=== PATIENT | male | born 1960 | race Caucasian/White ===

== ENCOUNTER 2017-08-23 15:50 | Emergency (ER) | payer MEDICARE, OTHER ==
[2017-08-23 16:03] LABS: BILIRUBIN,URINE NEGATIVE (NEG); CLARITY,URINE CLEAR; COLOR,URINE YELLOW; GLUCOSE,URINE NEGATIVE (NEG); NITRITE,URINE NEGATIVE (NEG); PROTEIN,URINE NEGATIVE (NEG-TRACE); UROBILINOGEN,URINE 0.2 mg/dL (0.2 mg/dL)
[2017-08-23] MEDS: IPRATRPIUM/ALBUTEROL 0.5/2.5MG 3 ML NEBU. NEB (16:14)
[2017-08-23 16:41] LABS: BACTERIA,URINE 0 /HPF (0-FEW); RBC,URINE 0 /HPF (0-2); SQUAMOUS EPITHELIAL CELL,UR OCC /LPF; WBC,URINE OCC /HPF (0-4)
[2017-08-23] MEDS: IV NORMAL SALINE 1000ML BAG 1,000 ML IV (17:12)
[2017-08-23] MEDS: KETOROLAC 30 MG/ML INJ. IV (17:14)
[2017-08-23] MEDS: HYDROcodone/APAP 5/325MG 1 TAB TABLET PO (17:15)
[2017-08-23 17:32] LABS: ADD MAN DIFF? NO
[2017-08-23 17:36] LABS: BASO % 1 % (0-3); EOS # 0.2 x10^3/uL (0.0-0.7); EOS % 2 % (0-3); HEMATOCRIT 38.5 % (39.0-53.0); HEMOGLOBIN 13.3 g/dL (13.0-17.5); LYMPH # 2.1 x10^3/uL (1.0-4.8); LYMPH % 26 % (24-48); MEAN CORPUSCULAR HEMOGLOBIN 31 pg (25-35); MEAN CORPUSCULAR HGB CONC 35 g/dL (31-37); MEAN CORPUSCULAR VOLUME 90 fL (79-100); MONO % 12 % (0-9); NEUT # 4.8 x10^3uL (1.8-7.7); NEUT % 60 % (31-73); PLATELET COUNT 212 x10^3/uL (140-400); RED BLOOD COUNT 4.27 x10^6/uL (4.30-5.70); RED CELL DISTRIBUTION WIDTH 13.4 % (11.5-14.5)
[2017-08-23 17:45] LABS: ANION GAP 6 (6-14); BLOOD UREA NITROGEN 14 mg/dL (8-26); BUN/CREATININE RATIO 16 (6-20); CALCIUM 8.8 mg/dL (8.5-10.1); CARBON DIOXIDE 31 mmol/L (21-32); CHLORIDE 95 mmol/L (98-107); CREATININE 0.9 mg/dL (0.7-1.3); GFR 87.6; GLUCOSE 94 mg/dL (70-99); POTASSIUM 4.1 mmol/L (3.5-5.1); SODIUM 132 mmol/L (136-145)
[2017-08-23 17:52] LABS: TROPONINI < 0.017 ng/mL (0.000-0.055)
[2017-08-23 17:53] LABS: ALBUMIN 3.3 g/dL (3.4-5.0); ALBUMIN/GLOBULIN RATIO 0.9 (1.0-1.7); ALK PHOS 60 U/L (46-116); ALT (SGPT) 28 U/L (16-63); AST (SGOT) 19 U/L (15-37); CREATINE KINASE 109 U/L (39-308); LIPASE 209 U/L (73-393); MAGNESIUM 1.8 mg/dL (1.8-2.4); TOTAL BILIRUBIN 0.3 mg/dL (0.2-1.0)
[2017-08-23 17:59] LABS: THYROID STIM HORMONE (TSH) 3.129 uIU/mL (0.358-3.74)
== END 2017-08-23 18:46 | disposition home or self-care (01) ==
LOC: ER 15:50
DX: J06.9 Acute upper respiratory infection, unspecified (principal); M79.1 Myalgia; R06.2 Wheezing; R30.0 Dysuria; F31.9 Bipolar disorder, unspecified
CPT/HCPCS: 36415; 71045; 80053; 81001; 82550; 83690; 83735; 84443; 84484; 85025; 93005; 94640; 96361; 96374; 99285-25; J1885; J7030; J7620

== ENCOUNTER → 2017-10-10 | Outpatient (CLI) | payer MEDICARE, OTHER | END | disposition home or self-care (01) | LOC: KCIC DEXA 15:25 | DX: M85.88 Other specified disorders of bone density and structure, other site (principal); M81.0 Age-related osteoporosis without current pathological fracture; R56.9 Unspecified convulsions; Z79.899 Other long term (current) drug therapy | CPT/HCPCS: 77080 ==

== ENCOUNTER 2019-03-03 09:25 | Inpatient (IN) | payer MEDICARE, MEDICAID ==
[~2019-03-03] VITALS: Ht 175.3 cm; Wt 106.7 kg
[~2019-03-03 09:25] MED LIST: ACET325T21 PO; ALBU2.5V8 INH; ALPR0.5T6 PO; AZIT250T PO; CARB200T4 PO; DIVA500T17 PO; DOCU100C28 PO; ESCITALOPRAM OX10 MG PO; HYDR-3164 PO; Hydrocodone/Acetaminophen PO; Ibuprofen PO; LORA10TA3 PO; MULT1TAB52 PO; PHEN100C4 PO; RISP3TAB3 PO; TRAZ-86 PO; ZIPR80CA3 PO; [UNRECOGNIZED DRUG - CODE] PO
--- NOTE | 2019-03-03 09:42 | PHYS DOC ---
Past Medical History Past Medical History: Bipolar, Seizure, Other Additional Past Medical Histor: Cerebal palsy (JOSTIN SULLIVAN APRN) Past Surgical History: Other Additional Past Surgical Histo: rt foot and leg surgery and rt hand (JOSTIN SULLIVAN APRN) Alcohol Use: None Drug Use: None (JOSTIN SULLIVAN APRN) Attending Signature I have participated in the care of this patient and I have reviewed and agree with all pertinent clinical information above including history, exam, and recommendations. (ALEN WARD MD) Adult General HPI HPI Patient is a 58 year old male who presents with alert and oriented but had a near syncopal episode in having dizziness today. Patient states he has been having dizziness and just overall increased fatigue over the last week and a half. Patient states about a week and a half ago they doubled his dose of Risperdal and ever since then he has been feeling this way. (JOSTIN SULLIVAN APRN) Review of Systems Review of Systems Constitutional: Denies fever or chills [] Musculoskeletal:Generalized weakness. Denies back pain or joint pain [] Neurologic: Dizziness. Denies headache, focal weakness or sensory changes [] All other systems were reviewed and found to be within normal limits, except as documented in this note. (JOSTIN SULLIVAN APRN) Current Medications Current Medications Current Medications Medications (Trade) Dose Ordered Sig/Tierney Start Time Stop Time Status Last Admin Dose Admin Acetaminophen (Tylenol) 650 mg PRN Q4HRS PRN 03/03/19 11:45 03/04/19 11:44 Meclizine HCl (Antivert) 25 mg 1X ONCE 03/03/19 10:00 03/03/19 10:07 DC 03/03/19 10:10 25 MG Ondansetron HCl (Zofran) 4 mg PRN Q8HRS PRN 03/03/19 11:45 03/04/19 11:44 Sodium Chloride 1,000 ml @ 1,000 mls/hr Q1H 03/03/19 10:00 03/03/19 10:59 DC 03/03/19 10:11 1,000 MLS/HR (ALEN WARD MD) Allergies Allergies Allergies Coded Allergies Type Severity Reaction Last Updated Verified No Known Drug Allergies 09/25/13 No (ALEN WARD MD) Physical Exam Physical Exam Constitutional: Well developed, well nourished, no acute distress, non-toxic appearance. [] HENT: Normocephalic, atraumatic, bilateral external ears normal, oropharynx moist, no oral exudates, nose normal. [] Eyes: PERRLA, EOMI, conjunctiva normal, no discharge. [] Cardiovascular:Heart rate regular rhythm, no murmur [] Lungs & Thorax: Bilateral breath sounds clear to auscultation [] Skin: Warm, dry, no erythema, no rash. [] Extremities: No tenderness, no cyanosis, no clubbing, ROM intact, no edema. [] Neurologic: Alert and oriented X 3, normal motor function, normal sensory function, no focal deficits noted. [] Psychologic: Affect normal, judgement normal, mood normal. [] (JOSTIN SULLIVAN APRN) Current Patient Data Vital Signs Vital Signs Date Time Temp Pulse Resp B/P (MAP) Pulse Ox O2 Delivery O2 Flow Rate FiO2 03/03/19 12:31 42 18 94 03/03/19 09:28 97.8 148/96 (113) Room Air 97.8 (ALEN WARD MD) Lab Values Laboratory Tests Test 03/03/19 10:16 White Blood Count 5.2 x10^3/uL (4.0-11.0) Red Blood Count 4.42 x10^6/uL (4.30-5.70) Hemoglobin 14.0 g/dL (13.0-17.5) Hematocrit 40.4 % (39.0-53.0) Mean Corpuscular Volume 91 fL (79-100) Mean Corpuscular Hemoglobin 32 pg (25-35) Mean Corpuscular Hemoglobin Concent 35 g/dL (31-37) Red Cell Distribution Width 13.6 % (11.5-14.5) Platelet Count 192 x10^3/uL (140-400) Neutrophils (%) (Auto) 60 % (31-73) Lymphocytes (%) (Auto) 25 % (24-48) Monocytes (%) (Auto) 12 % (0-9) H Eosinophils (%) (Auto) 3 % (0-3) Basophils (%) (Auto) 1 % (0-3) Neutrophils # (Auto) 3.1 x10^3/uL (1.8-7.7) Lymphocytes # (Auto) 1.3 x10^3/uL (1.0-4.8) Monocytes # (Auto) 0.6 x10^3/uL (0.0-1.1) Eosinophils # (Auto) 0.2 x10^3/uL (0.0-0.7) Basophils # (Auto) 0.0 x10^3/uL (0.0-0.2) Urine Collection Type Void Urine Color Yellow Urine Clarity Clear Urine pH 6.5 Urine Specific Ronald 1.010 Urine Protein Negative mg/dL (NEG-TRACE) Urine Glucose (UA) Negative mg/dL (NEG) Urine Ketones (Stick) Negative mg/dL (NEG) Urine Blood Negative (NEG) Urine Nitrite Negative (NEG) Urine Bilirubin Negative (NEG) Urine Urobilinogen Dipstick 0.2 mg/dL (0.2 mg/dL) Urine Leukocyte Esterase Negative (NEG) Urine RBC 1-2 /HPF (0-2) Urine WBC Occ /HPF (0-4) Urine Bacteria 0 /HPF (0-FEW) Sodium Level 140 mmol/L (136-145) Potassium Level 4.1 mmol/L (3.5-5.1) Chloride Level 105 mmol/L (98-107) Carbon Dioxide Level 29 mmol/L (21-32) Anion Gap 6 (6-14) Blood Urea Nitrogen 13 mg/dL (8-26) Creatinine 0.7 mg/dL (0.7-1.3) Estimated GFR (Cockcroft-Gault) 116.7 BUN/Creatinine Ratio 19 (6-20) Glucose Level 107 mg/dL (70-99) H Calcium Level 9.0 mg/dL (8.5-10.1) Total Bilirubin 0.3 mg/dL (0.2-1.0) Aspartate Amino Transferase (AST) 19 U/L (15-37) Alanine Aminotransferase (ALT) 28 U/L (16-63) Alkaline Phosphatase 54 U/L (46-116) Troponin I Quantitative < 0.017 ng/mL (0.000-0.055) Total Protein 7.0 g/dL (6.4-8.2) Albumin 3.4 g/dL (3.4-5.0) Albumin/Globulin Ratio 0.9 (1.0-1.7) L Laboratory Tests 03/03/19 10:16 Laboratory Tests 03/03/19 10:16 (ALEN WARD MD) Lab Values Laboratory Tests Test 03/03/19 10:16 White Blood Count 5.2 x10^3/uL (4.0-11.0) Red Blood Count 4.42 x10^6/uL (4.30-5.70) Hemoglobin 14.0 g/dL (13.0-17.5) Hematocrit 40.4 % (39.0-53.0) Mean Corpuscular Volume 91 fL (79-100) Mean Corpuscular Hemoglobin 32 pg (25-35) Mean Corpuscular Hemoglobin Concent 35 g/dL (31-37) Red Cell Distribution Width 13.6 % (11.5-14.5) Platelet Count 192 x10^3/uL (140-400) Neutrophils (%) (Auto) 60 % (31-73) Lymphocytes (%) (Auto) 25 % (24-48) Monocytes (%) (Auto) 12 % (0-9) H Eosinophils (%) (Auto) 3 % (0-3) Basophils (%) (Auto) 1 % (0-3) Neutrophils # (Auto) 3.1 x10^3/uL (1.8-7.7) Lymphocytes # (Auto) 1.3 x10^3/uL (1.0-4.8) Monocytes # (Auto) 0.6 x10^3/uL (0.0-1.1) Eosinophils # (Auto) 0.2 x10^3/uL (0.0-0.7) Basophils # (Auto) 0.0 x10^3/uL (0.0-0.2) Urine Collection Type Void Urine Color Yellow Urine Clarity Clear Urine pH 6.5 Urine Specific Ronald 1.010 Urine Protein Negative mg/dL (NEG-TRACE) Urine Glucose (UA) Negative mg/dL (NEG) Urine Ketones (Stick) Negative mg/dL (NEG) Urine Blood Negative (NEG) Urine Nitrite Negative (NEG) Urine Bilirubin Negative (NEG) Urine Urobilinogen Dipstick 0.2 mg/dL (0.2 mg/dL) Urine Leukocyte Esterase Negative (NEG) Urine RBC 1-2 /HPF (0-2) Urine WBC Occ /HPF (0-4) Urine Bacteria 0 /HPF (0-FEW) Sodium Level 140 mmol/L (136-145) Potassium Level 4.1 mmol/L (3.5-5.1) Chloride Level 105 mmol/L (98-107) Carbon Dioxide Level 29 mmol/L (21-32) Anion Gap 6 (6-14) Blood Urea Nitrogen 13 mg/dL (8-26) Creatinine 0.7 mg/dL (0.7-1.3) Estimated GFR (Cockcroft-Gault) 116.7 BUN/Creatinine Ratio 19 (6-20) Glucose Level 107 mg/dL (70-99) H Calcium Level 9.0 mg/dL (8.5-10.1) Total Bilirubin 0.3 mg/dL (0.2-1.0) Aspartate Amino Transferase (AST) 19 U/L (15-37) Alanine Aminotransferase (ALT) 28 U/L (16-63) Alkaline Phosphatase 54 U/L (46-116) Troponin I Quantitative < 0.017 ng/mL (0.000-0.055) Total Protein 7.0 g/dL (6.4-8.2) Albumin 3.4 g/dL (3.4-5.0) Albumin/Globulin Ratio 0.9 (1.0-1.7) L Laboratory Tests 03/03/19 10:16 Laboratory Tests 03/03/19 10:16 (JOSTIN SULLIVAN APRN) EKG EKG #1 Sinus rhythm and no STEMI, #2 Sinus Bradycardia] Interpretation Time: #[address] Ward, #[address] Ward (JOSTIN SULLIVAN APRN) Radiology/Procedures Radiology/Procedures [] (JOSTIN SULLIVAN APRN) Impressions: [facility] [address] [place], [place] [id number] IMAGING REPORT Signed PATIENT: WENDY LINARES LACCOUNT: [id number] : 1960 LOCATION: ER AGE: 58 SEX: M EXAM STATUS: REG ER ORD. PHYSICIAN: JOSTIN SULLIVAN APRN REASON: weakness, dizziness PROCEDURE: PORTABLE CHEST 1V EXAM: CHEST 1 VIEW History: Weakness, dizziness COMPARISON: 08/23/2017 TECHNIQUE: Single portable radiograph of the chest FINDINGS: The cardiac silhouette is unremarkable. The lungs are clear bilaterally. The costophrenic sulci are clear and well demarcated. IMPRESSION: No radiographic evidence of an acute cardiopulmonary process. Electronically signed by: Seth Hayden MD (03/03/2019 9:56 AM) [id number] DICTATED and SIGNED BY: SETH HAYDEN MD DATE: 03/03/19 0956 [facility] [address] [place] [address] IMAGING REPORT Signed PATIENT: WENDY LINARES LACCOUNT: [id number] : 1960 LOCATION: ER AGE: 58 SEX: M EXAM STATUS: REG ER ORD. PHYSICIAN: JOSTIN SULLIVAN APRN REASON: dizziness, near syncope PROCEDURE: CT HEAD WO CONTRAST CT HEAD WO CONTRAST Date: 03/03/2019 9:31 AM Clinical Indication: Comparison: 03/26/2014. Technique: 5 mm axial tomographic images were obtained of the head without contrast. These were viewed on brain and bone windows. One or more of the following dose reduction techniques were utilized: Automated exposure control (AEC), Adjustment of mA and/or kV according to patient size, Use of iterative reconstruction technique such as ASiR, CT scan done according to ALARA and image gently/image wisely Findings: No intra- or extra-axial mass or fluid collection. No acute hemorrhage. The pierce-white matter junction is normal. The subarachnoid cisterns are patent. Demonstration of a large area of left hemisphere encephalomalacia involving the left frontal, parietal, temporal, occipital lobes. Ex vacuo dilatation of the left lateral ventricle. The visualized paranasal sinuses are normal. The visualized portions of the orbits and globes are normal. The mastoid air cells are clear. The skip tracer topogram shows no lytic lesion or fracture. Impression: No acute intracranial process. Large area of left hemispheric encephalomalacia. Electronically signed by: Katlin Kellogg MD (03/03/2019 10:09 AM) [id number] DICTATED and SIGNED BY: KATLIN KELLOGG MD DATE: 03/03/19 1009 (JOSTIN SULLIVAN APRN) Course & Med Decision Making Course & Med Decision Making Denies chest pain, soa, headache, focal weakness, numbness or tingling, fever, dysuria, recent illness, abdominal pain. No extremity edema. Hx of cerebral palsy with right sided weakness. Patient uses a walker yo ambulate. EMS states that the patient began to feel dizzy this morning at his group home "[facility]". EMS and patient states the patient did not fall and he did not loc. PERRLA. During orthostatics when patient was stood up patient became very dizzy and almost syncopal. Orthostatics are layin/89, 52; sittin/78, 57; standing 139/80, 59. Patient states that the meclizine has not helped. Patients heart rate is dropping down to 40. Patient admitted for syncope by Cecelia. (JOSTIN SULLIVAN APRN) Dragon Disclaimer Dragon Disclaimer This electronic medical record was generated, in whole or in part, using a voice recognition dictation system. (JOSTIN SULLIVAN APRN) NIHSS Stroke Scale NIH Stroke Scale: NIH Stroke Scale Response (Comments) Value Level of Consciousness: 0 Alert/Responsive 0 LOC Questions: 0 Answers both correctly 0 LOC Commands: 0 Performs both tasks 0 Best Gaze: 0 Normal 0 Visual: 0 No visual loss 0 Facial Palsy: 0 Normal, symmetrical 0 Motor - Left Arm 0 No drift 0 Motor - Right Arm 1 Drifts but can hold 1 Motor - Left Leg 0 No drift 0 Motor: Right Leg 1 Drift but can hold 1 Limb Ataxia: 0 Absent (HX: CEREBRAL PALSY WITH RIGHT SIDED WEAKNESS) 0 Sensory: 0 No loss 0 Best Language: 0 Normal 0 Dysathria: 0 Normal 0 Extinction and Inattention: 0 Normal 0 Total 2 Departure Departure Impression: Primary Impression: Syncope Disposition: 09 ADMITTED INPATIENT Admitting Physician: Angle Rai (JOSTIN SULLIVAN APRN) Condition: STABLE Referrals: SANTO SMART (PCP) Problem Qualifiers Primary Impression: Syncope Syncope type: unspecified Qualified Codes: R55 - Syncope and collapse JOSTIN SULLIVAN APRN Mar 03, 2019 09:42 ALEN WARD MD Mar 03, 2019 12:55
--- NOTE | 2019-03-03 09:59 | RAD ---
EXAM: CHEST 1 VIEW History: Weakness, dizziness COMPARISON: 08/23/2017 TECHNIQUE: Single portable radiograph of the chest FINDINGS: The cardiac silhouette is unremarkable. The lungs are clear bilaterally. The costophrenic sulci are clear and well demarcated. IMPRESSION: No radiographic evidence of an acute cardiopulmonary process. Electronically signed by: Seth Hayden MD (03/03/2019 9:56 AM) [id number]
[2019-03-03] MEDS ORDERED: IV NORMAL SALINE 1000ML BAG 1,000 ML IV SCH (10:00)
[2019-03-03] MEDS ORDERED: MECLIZINE HCL 12.5 MG TABLET. PO ONE (10:00)
--- NOTE | 2019-03-03 10:12 | RAD ---
CT HEAD WO CONTRAST Date: 03/03/2019 9:31 AM Clinical Indication: Comparison: 03/26/2014. Technique: 5 mm axial tomographic images were obtained of the head without contrast. These were viewed on brain and bone windows. One or more of the following dose reduction techniques were utilized: Automated exposure control (AEC), Adjustment of mA and/or kV according to patient size, Use of iterative reconstruction technique such as ASiR, CT scan done according to ALARA and image gently/image wisely Findings: No intra- or extra-axial mass or fluid collection. No acute hemorrhage. The pierce-white matter junction is normal. The subarachnoid cisterns are patent. Demonstration of a large area of left hemisphere encephalomalacia involving the left frontal, parietal, temporal, occipital lobes. Ex vacuo dilatation of the left lateral ventricle. The visualized paranasal sinuses are normal. The visualized portions of the orbits and globes are normal. The mastoid air cells are clear. The pharmacy picking technician topogram shows no lytic lesion or fracture. Impression: No acute intracranial process. Large area of left hemispheric encephalomalacia. Electronically signed by: Justus Kellogg MD (03/03/2019 10:09 AM) [facility]
[2019-03-03 10:28] LABS: BASO % 1 % (0-3); EOS # 0.2 x10^3/uL (0.0-0.7); EOS % 3 % (0-3); HEMATOCRIT 40.4 % (39.0-53.0); LYMPH # 1.3 x10^3/uL (1.0-4.8); LYMPH % 25 % (24-48); MEAN CORPUSCULAR HEMOGLOBIN 32 pg (25-35); MEAN CORPUSCULAR HGB CONC 35 g/dL (31-37); MEAN CORPUSCULAR VOLUME 91 fL (79-100); MONO # 0.6 x10^3/uL (0.0-1.1); MONO % 12 % (0-9); NEUT # 3.1 x10^3/uL (1.8-7.7); NEUT % 60 % (31-73); PLATELET COUNT 192 x10^3/uL (140-400); RED BLOOD COUNT 4.42 x10^6/uL (4.30-5.70); RED CELL DISTRIBUTION WIDTH 13.6 % (11.5-14.5); WHITE BLOOD COUNT 5.2 x10^3/uL (4.0-11.0)
[2019-03-03 10:29] LABS: BILIRUBIN,URINE NEGATIVE (NEG); CLARITY,URINE CLEAR; COLOR,URINE YELLOW; NITRITE,URINE NEGATIVE (NEG); PH,URINE 6.5; PROTEIN,URINE NEGATIVE (NEG-TRACE); UROBILINOGEN,URINE 0.2 mg/dL (0.2 mg/dL)
[2019-03-03 10:38] LABS: CREATININE 0.7 mg/dL (0.7-1.3); GFR 116.7; POTASSIUM 4.1 mmol/L (3.5-5.1)
[2019-03-03 10:44] LABS: BACTERIA,URINE 0 /HPF (0-FEW); WBC,URINE OCC /HPF (0-4)
[2019-03-03 10:45] LABS: ALBUMIN 3.4 g/dL (3.4-5.0); ALBUMIN/GLOBULIN RATIO 0.9 (1.0-1.7); TOTAL BILIRUBIN 0.3 mg/dL (0.2-1.0)
[2019-03-03] MEDS ORDERED: ONDANSETRON PF 4 MG/2 ML VIAL. IV PRN (11:45)
[2019-03-03] MEDS ORDERED: ACETAMINOPHEN 325 MG TABLET. PO PRN (11:45)
--- NOTE | 2019-03-03 12:09 | EKG ---
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
--- NOTE | 2019-03-03 12:56 | EKG ---
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
[2019-03-03 15:00] VITALS: BP 168/80
[2019-03-03] MEDS ORDERED: FLU VAX QS 2019-20 (36MOS+)/PF 0.5 ML SYRINGE. VAX IM ONE (17:00)
--- NOTE | 2019-03-03 17:13 | NUR ---
DR. CALDERA WOULD LIKE TO HOLD PT RESPIRADONE UNTIL CLEARED. PLEASE INFORM DR. POZO OF THIS IN THE AM IF ROUNDING FIRST WHEN RESTARTING HOME MEDICATIONS.
[2019-03-03] MEDS ORDERED: ASPI325T8 PO (19:24)
[2019-03-03] MEDS ORDERED: RISP2TAB3 PO (19:24)
[2019-03-03] MEDS ORDERED: ESCITALOPRAM OX20 MG PO (19:24)
[2019-03-03] MEDS ORDERED: FERR325T20 PO (19:32)
[2019-03-03] MEDS ORDERED: FLUT16SP NS (19:32)
[2019-03-03] MEDS ORDERED: PHEN100C4 PO (19:32)
[2019-03-03] MEDS ORDERED: CALC500T10 PO (19:32)
[2019-03-03] MEDS ORDERED: CETI10TA16 PO (19:32)
[2019-03-03] MEDS ORDERED: DIVA500T17 PO (19:32)
[2019-03-03] MEDS ORDERED: CHLO15MO2 PO (19:32)
[2019-03-03] MEDS ORDERED: CARB200T4 PO (19:32)
[2019-03-03] MEDS ORDERED: PHEN200C3 PO (19:32)
[2019-03-03] MEDS ORDERED: [UNRECOGNIZED DRUG - CODE] PO (19:32)
[2019-03-03 19:58] VITALS: BP 149/87
[2019-03-03] MEDS: traZODone 100 MG TABLET. PO SCH (21:05)
[2019-03-03] MEDS: carBAMazepine 200 MG TABLET PO SCH (21:05)
[2019-03-03] MEDS: PHENYTOIN SODIUM EXTENDED 100 MG CAPSULE PO SCH (21:06)
[2019-03-03] MEDS: TIAGABINE 4 MG PO SCH (21:06)
[2019-03-03] MEDS: DIVALPROEX EXTENDED RELEASE 250 MG TAB.ER.24H. PO SCH (21:06)
[2019-03-03] MEDS: IV NORMAL SALINE 1000ML BAG 1,000 ML IV SCH (21:43)
[2019-03-03 23:35] VITALS: BP 130/60
[2019-03-04] VITALS (9 sets, daily range): BP systolic 124–181; BP diastolic 67–100
[2019-03-04 05:22] LABS: CARBAM 5.5 mcg/mL (4.0-12.0); CHOLESTEROL 142 mg/dL (0-200); HDLC 28 mg/dL (40-60); LDLC 83 mg/dL (0-100); PHENY 4.4 mcg/mL (10.0-20.0); TRIGLYCERIDES 156 mg/dL (0-150); VLDLC 31 mg/dL (0-40)
[2019-03-04 05:24] LABS: CHOLESTEROL/HDL RATIO 5.1; VAL ACID 37 mcg/mL (50-100)
[2019-03-04] MEDS: IV NORMAL SALINE 1000ML BAG 1,000 ML IV SCH ×2 (07:15→21:01)
[2019-03-04] MEDS: CITALOPRAM 20 MG TABLET. PO SCH (09:29)
[2019-03-04] MEDS: TIAGABINE 4 MG PO SCH ×2 (09:29→21:01)
[2019-03-04] MEDS: SENNOSIDES/DOCUSATE 8.6/50MG TABLET. PO SCH ×3 (09:29→21:03)
[2019-03-04] MEDS: MULTIVITAMIN with MINERAL TABLET. PO SCH (09:30)
[2019-03-04] MEDS: PHENYTOIN SODIUM EXTENDED 100 MG CAPSULE PO SCH ×2 (09:30→21:02)
[2019-03-04] MEDS: carBAMazepine 200 MG TABLET PO SCH ×3 (09:30→21:02)
[2019-03-04] MEDS: ASPIRIN 325 MG TABLET PO SCH (09:30)
[2019-03-04] MEDS: FLUTICASONE 50MCG/NASAL SPRAY 16GM BOTTLE. NS SCH ×2 (09:31→21:01)
--- NOTE | 2019-03-04 09:51 | PDOC ---
Provider Note Provider Note Pt seen.H&P dictated.#[id number]. XIOMARA POZO MD Mar 04, 2019 09:51
--- NOTE | 2019-03-04 10:14 | HP ---
ADMIT DATE: 03/03/2019 PATIENT LOCATION: [facility]. REASON FOR ADMISSION TO THE HOSPITAL: Syncope. PRIMARY PHYSICIAN: Brandi Foley MD HISTORY OF PRESENT ILLNESS: The patient is a 58-year-old male. The patient has a mental disability and he also has history of seizures and he is on 3 medications for seizure. He also has behavioral problems, had seen a psychiatrist a couple of days ago. The psychiatrist increased risperidone to twice a day and then the sister, who is the DPOA, saying that he was lightheaded, dizzy, and he fell yesterday and there was some bruising on the back of the upper abdomen and he was brought to the hospital. CT head was negative. Chest x-ray was negative. Laboratory data did not show any major problems. Had an EKG, shows a bradycardia around 50s and the patient was admitted to the hospital for observation and monitoring. PAST MEDICAL HISTORY: Had cerebral palsy, seizures, bipolar. PAST SURGICAL HISTORY: Surgery on the leg and foot. ALLERGIES: No known allergies. MEDICATIONS AT HOME: The patient is on aspirin 325 daily, carbamazepine 200 mg 3 times daily, Depakote 500 mg; total he takes 750 mg daily, escitalopram 20 mg daily, Flonase daily, multivitamin daily, Dilantin 100 mg in the morning and 200 mg in the nighttime, senna daily, tiagabine or Gabitril 12 mg twice a day, trazodone 100 mg at bedtime and Peridex, calcium twice a day. PERSONAL HISTORY: Denies smoking, alcohol, drug abuse. FAMILY HISTORY: Unremarkable. REVIEW OF SYSTEMS: Denies any chest pain. Complains of bruise in the upper abdomen from the fall. Rest of the 14-system was reviewed and negative. PHYSICAL EXAMINATION: GENERAL: The patient is not in any distress. VITAL SIGNS: Temperature 98, pulse 53, respirations 20, blood pressure 148/96, 95% on room air. HEENT: Head is atraumatic. Pupils equal. Oral cavity: No congestion. NECK: Supple. CHEST: Symmetrical. CARDIOVASCULAR: S1, S2. LUNGS: Clear. ABDOMEN: Soft. Some bruising in the left upper abdomen, nontender, bowel sounds present, no mass palpable. EXTERNAL GENITALIA: No Kline. RECTAL: Deferred. EXTREMITIES: No calf tenderness. No edema. Pulses 1+. NEUROLOGIC: Moving all extremities. No focal deficits noted. LABORATORY DATA: Shows a white count 5, hemoglobin 14, platelets 192. Urine is negative. Electrolytes show sodium 140, potassium 4.1, chloride 105, bicarb 29, BUN 13, creatinine 0.7, glucose 107. LFTs were normal. Thyroid 1.3. Cholesterol 156, LDL 83. Toxicology: Dilantin was 5. Valproic acid 37. Carbamazepine 5.5. Had a CT head, shows a left hemispheric encephalomalacia, large area. Chest x-ray: Negative. EKG: Sinus bradycardia, no ischemia. FINAL IMPRESSION: 1. Syncope. 2. Bradycardia. 3. History of seizures. 4. Cerebral palsy. 5. Recent increase in risperidone may be contributing the problems. PLAN: At this time, is admit to the hospital. The patient was admitted, was put on threat monitoring analyst. No further bradycardia noted. We will get an echocardiogram to look at left ventricular function, probably may need outpatient Holter. We will leave it to Cardiology and PT/OT and review the therapeutic levels of medications. If it is okay, probably we will be able to discharge later today. I spoke with the patient's sister. XIOMARA POZO MD DR: JESUS/stephen JOB#: [id number] / [id number] Batista Ahmed MD
--- NOTE | 2019-03-04 11:48 | PDOC2 ---
CONSULT Date of Consult Date of Consult DATE: 03/04/19 TIME: 11:40 Reason for Consult Reason for Consult: Syncope Referring Physician Referring Physician: Dr. Rai Identification/Chief Complaint Chief Complaint Syncope Source Source: Chart review, Patient History of Present Illness Reason for Visit: 58-year-old male with history of cerebral palsy and seizure disorder apparently had an episode where he felt dizzy, and passed out. He bruised in the upper abdominal area during the fall. He stated that he had a couple more episodes in the last few years ago similar. He denied any previous cardiac history. He is not a very good historian but denied any chest pain, orthopnea/PND or palpitations. Past Medical History Past Medical History Cerebral palsy Seizure disorder Bipolar disorder Past Surgical History Past Surgical History Surgery on leg and foot Family History Family History not contributory Social History Social History Patient denied any smoking alcohol or drug use Current Problem List Problem List Problems Medical Problems: (1) Syncope Status: Acute Current Medications Current Medications Current Medications Sodium Chloride 1,000 ml @ 1,000 mls/hr Q1H IV Last administered on 03/03/19at 10:11; Start 03/03/19 at 10:00; Stop 03/03/19 at 10:59; Status DC Meclizine HCl (Antivert) 25 mg 1X ONCE PO Last administered on 03/03/19at 10:10; Start 03/03/19 at 10:00; Stop 03/03/19 at 10:07; Status DC Ondansetron HCl (Zofran) 4 mg PRN Q8HRS PRN IV NAUSEA/VOMITING; Start 03/03/19 at 11:45; Stop 03/04/19 at 11:44 Acetaminophen (Tylenol) 650 mg PRN Q4HRS PRN PO FEVER; Start 03/03/19 at 11:45; Stop 03/04/19 at 11:44 Influenza Virus Vaccine Quadrival (Afluria Quad 2019-20 (3yr Up) Syringe) 0.5 ml ONCE ONCE VAX IM Last administered on 03/03/19at 18:21; Start 03/03/19 at 17:00; Stop 03/03/19 at 17:01; Status DC Carbamazepine (TEGretol) 200 mg TID PO Last administered on 03/04/19at 09:30; Start 03/03/19 at 21:00 Divalproex Sodium (Depakote Er) 750 mg QHS PO Last administered on 03/03/19 21:06; Start 03/03/19 at 21:00 Phenytoin Sodium (Dilantin) 100 mg DAILY PO Last administered on 03/04/19 09:30; Start 03/04/19 at 09:00 Trazodone HCl (Desyrel) 100 mg HS PO Last administered on 03/03/19 21:05; Start 03/03/19 at 21:00 Citalopram Hydrobromide (CeleXA) 40 mg DAILY PO Last administered on 03/04/19 09:29; Start 03/04/19 at 09:00 Phenytoin Sodium (Dilantin) 200 mg QHS PO Last administered on 03/03/19 21:06; Start 03/03/19 at 21:00 Tiagabine HCl (Gabitril) 12 mg BID PO Last administered on 03/04/19 09:29; Start 03/03/19 at 21:00 Aspirin (Ravi Aspirin) 325 mg DAILY PO Last administered on 03/04/19 09:30; Start 03/04/19 at 09:00 Fluticasone Propionate (Flonase) 2 spray BID NS Last administered on 03/04/19 09:31; Start 03/04/19 at 09:00 Senna/Docusate Sodium (Senna Plus) 1 tab BID PO Last administered on 03/04/19 09:29; Start 03/04/19 at 09:00 Multivitamins (Thera M Plus) 1 tab DAILY PO Last administered on 03/04/19 09:30; Start 03/04/19 at 09:00 Sodium Chloride 1,000 ml @ 100 mls/hr Q10H IV Last administered on 03/04/19 07:15; Start 03/03/19 at 21:15 Active Scripts Active Reported Phenytoin Sodium Extended 200 Mg Capsule 200 Mg PO QHS Phenytoin Sodium Extended 100 Mg Capsule 100 Mg PO DAILY Divalproex Sodium Er (Divalproex Sodium) 500 Mg Tab.er.24h 750 Mg PO QHS Peridex (Chlorhexidine Gluconate) 15 Ml Mouthwash 15 Ml PO BID 30 Days Carbamazepine 200 Mg Tablet 200 Mg PO TID Calci-Chew (Calcium Carbonate) 500 Mg Tab.chew 500 Mg PO BID Fluticasone Propionate Nasal [place] (Fluticasone Propionate) 16 Gm [place].susp 2 [place] NS BID Dok Plus Tablet (Sennosides/Docusate Sodium) 1 Each Tablet 1 Each PO BID Aspirin 325 Mg Tablet 325 Mg PO DAILY Escitalopram Oxalate 20 Mg Tablet 20 Mg PO DAILY Multivitamins (Multivitamin) 1 Each Tablet 1 Each PO DAILY Trazodone Hcl 100 Mg Tablet 100 Mg PO HS Gabitril (Tiagabine Hcl) 12 Mg Tablet 12 Mg PO BID Allergies Allergies: Coded Allergies: No Known Drug Allergies (Unverified , 09/25/13) ROS PSYCHOLOGICAL ROS: No: Hallucinations Eyes: No Loss of vision HEENT: No: Epistaxis Respiratory: No: Hemoptysis, Shortness of breath Cardiovascular: No Chest Pain Gastrointestinal: No Vomiting, No Diarrhea Neurological: Yes Seizures Skin: No Rash Physical Exam General: Alert, Oriented X3 HEENT: Atraumatic, PERRLA Lungs: Clear to auscultation Heart: Regular rate Abdomen: Soft, No tenderness Extremities: No edema Vitals VITALS Vital Signs Date Time Temp Pulse Resp B/P (MAP) Pulse Ox O2 Delivery O2 Flow Rate FiO2 03/04/19 08:00 Room Air 03/04/19 07:00 98.7 60 18 159/81 (107) 95 98.7 Labs Labs Laboratory Tests Test 03/03/19 10:16 03/04/19 04:00 White Blood Count 5.2 x10^3/uL (4.0-11.0) Red Blood Count 4.42 x10^6/uL (4.30-5.70) Hemoglobin 14.0 g/dL (13.0-17.5) Hematocrit 40.4 % (39.0-53.0) Mean Corpuscular Volume 91 fL (79-100) Mean Corpuscular Hemoglobin 32 pg (25-35) Mean Corpuscular Hemoglobin Concent 35 g/dL (31-37) Red Cell Distribution Width 13.6 % (11.5-14.5) Platelet Count 192 x10^3/uL (140-400) Neutrophils (%) (Auto) 60 % (31-73) Lymphocytes (%) (Auto) 25 % (24-48) Monocytes (%) (Auto) 12 % (0-9) Eosinophils (%) (Auto) 3 % (0-3) Basophils (%) (Auto) 1 % (0-3) Neutrophils # (Auto) 3.1 x10^3/uL (1.8-7.7) Lymphocytes # (Auto) 1.3 x10^3/uL (1.0-4.8) Monocytes # (Auto) 0.6 x10^3/uL (0.0-1.1) Eosinophils # (Auto) 0.2 x10^3/uL (0.0-0.7) Basophils # (Auto) 0.0 x10^3/uL (0.0-0.2) Urine Collection Type Void Urine Color Yellow Urine Clarity Clear Urine pH 6.5 Urine Specific [place] 1.010 Urine Protein Negative mg/dL (NEG-TRACE) Urine Glucose (UA) Negative mg/dL (NEG) Urine Ketones (Stick) Negative mg/dL (NEG) Urine Blood Negative (NEG) Urine Nitrite Negative (NEG) Urine Bilirubin Negative (NEG) Urine Urobilinogen Dipstick 0.2 mg/dL (0.2 mg/dL) Urine Leukocyte Esterase Negative (NEG) Urine RBC 1-2 /HPF (0-2) Urine WBC Occ /HPF (0-4) Urine Bacteria 0 /HPF (0-FEW) Sodium Level 140 mmol/L (136-145) Potassium Level 4.1 mmol/L (3.5-5.1) Chloride Level 105 mmol/L (98-107) Carbon Dioxide Level 29 mmol/L (21-32) Anion Gap 6 (6-14) Blood Urea Nitrogen 13 mg/dL (8-26) Creatinine 0.7 mg/dL (0.7-1.3) Estimated GFR (Cockcroft-Gault) 116.7 BUN/Creatinine Ratio 19 (6-20) Glucose Level 107 mg/dL (70-99) Calcium Level 9.0 mg/dL (8.5-10.1) Total Bilirubin 0.3 mg/dL (0.2-1.0) Aspartate Amino Transf (AST/SGOT) 19 U/L (15-37) Alanine Aminotransferase (ALT/SGPT) 28 U/L (16-63) Alkaline Phosphatase 54 U/L (46-116) Troponin I Quantitative < 0.017 ng/mL (0.000-0.055) Total Protein 7.0 g/dL (6.4-8.2) Albumin 3.4 g/dL (3.4-5.0) Albumin/Globulin Ratio 0.9 (1.0-1.7) Triglycerides Level 156 mg/dL (0-150) Cholesterol Level 142 mg/dL (0-200) LDL Cholesterol, Calculated 83 mg/dL (0-100) VLDL Cholesterol, Calculated 31 mg/dL (0-40) Non-HDL Cholesterol Calculated 114 mg/dL (0-129) HDL Cholesterol 28 mg/dL (40-60) Cholesterol/HDL Ratio 5.1 Thyroid Stimulating Hormone (TSH) 1.326 uIU/mL (0.358-3.74) Phenytoin (Dilantin) Level 4.4 mcg/mL (10.0-20.0) Phenytoin Last Dose Date 03/03/19 Phenytoin Last Dose Time 2099 Valproic Acid (Depakene) Level 37 mcg/mL (50-100) Valproic Acid Last Dose Date 03/03/19 Valproic Acid Last Dose Time 2100 Carbamazepine (Tegretol) Level 5.5 mcg/mL (4.0-12.0) Carbamazepine Last Dose Date 03/03/19 Carbamazepine Last Dose Time 2099 Laboratory Tests Test 03/04/19 04:00 Triglycerides Level 156 mg/dL (0-150) Cholesterol Level 142 mg/dL (0-200) LDL Cholesterol, Calculated 83 mg/dL (0-100) VLDL Cholesterol, Calculated 31 mg/dL (0-40) Non-HDL Cholesterol Calculated 114 mg/dL (0-129) HDL Cholesterol 28 mg/dL (40-60) Cholesterol/HDL Ratio 5.1 Thyroid Stimulating Hormone (TSH) 1.326 uIU/mL (0.358-3.74) Phenytoin (Dilantin) Level 4.4 mcg/mL (10.0-20.0) Phenytoin Last Dose Date 03/03/19 Phenytoin Last Dose Time 2100 Valproic Acid (Depakene) Level 37 mcg/mL (50-100) Valproic Acid Last Dose Date 03/03/19 Valproic Acid Last Dose Time 2099 Carbamazepine (Tegretol) Level 5.5 mcg/mL (4.0-12.0) Carbamazepine Last Dose Date 03/03/19 Carbamazepine Last Dose Time 2099 Assessment/Plan Assessment/Plan 1. Syncope. EKG and telemetry showed sinus bradycardia without any significant pauses or other arrhythmias. QTc interval 444. Check orthostatics. We will obtain 2-D echo to assess LV function and rule out any significant structural abnormalities. Plan for event monitor as an outpatient. 2. Bipolar disorder, seizure disorder: Continue current treatment Thank you for your consultation NOEMY CALL MD Mar 04, 2019 11:48
--- NOTE | 2019-03-04 15:00 | PDOC ---
Provider Note Provider Note Discharge summary dictated.#[id number]. XIOMARA POZO MD Mar 04, 2019 15:00
[2019-03-04] MEDS ORDERED: hydrALAZINE 20 MG/ML VIAL. IVP PRN (16:30)
[2019-03-04] MEDS: LISINOPRIL 10 MG TABLET PO SCH (18:15)
--- NOTE | 2019-03-04 19:17 | NUR ---
FCI and sister have been updated on patient's care. Echo never took place today. Awaiting results. Patient's blood pressure varies by 30-40 differences between left and right arm. HTN pf 177, then 170 supine, and then was given the hydralazine IVP. Then given lisinopril PO.
--- NOTE | 2019-03-04 19:48 | DS ---
DATE OF DISCHARGE: 03/04/2019 REASON FOR ADMISSION TO THE HOSPITAL: Syncope. CONSULTATIONS: Dr. Pak. PROCEDURES DONE: 1. CT head. 2. Echocardiogram. HOSPITAL COURSE: The patient is a 58-year-old male with history of cerebral palsy, he has seizures. He also has psychiatric behavioral problems, has seen psychiatrist and increased the Risperdal from 1 tablet to 2 tablets and there is a week ago, he has been feeling dizzy and he passed out yesterday. Has some bruise in the chest. No other major injuries, was admitted to the hospital, he was sinus bradycardia, no pauses noted. The patient was seen by Cardiology. Echocardiogram was done, report is pending. The patient was recommended event monitor. CT head showed some encephalomalacia. Laboratory data was unremarkable. The patient is on three medications for seizures, continue those. On the whole, the patient's condition improved. He was discharged. Follow with outpatient event monitor. FINAL DIAGNOSES: 1. Syncope, probably secondary to psychiatric medication, may be Risperdal. 2. Encephalomalacia. 3. Seizures. 4. Sinus bradycardia. DISPOSITION: Home. Continue all other medications except Risperdal and follow with PCP, Dr. Foley in 1 week. XIOMARA POZO MD DR: JESUS/stephen JOB#: [id number] / [id number] SANTO Santacruz
[2019-03-04] MEDS: DIVALPROEX EXTENDED RELEASE 250 MG TAB.ER.24H. PO SCH (21:02)
[2019-03-04] MEDS: traZODone 100 MG TABLET. PO SCH (21:02)
[2019-03-05 03:51] VITALS: BP 124/88
[2019-03-05] MEDS: IV NORMAL SALINE 1000ML BAG 1,000 ML IV SCH (05:53)
[2019-03-05 07:00] VITALS: BP 132/72
[2019-03-05] MEDS: TIAGABINE 4 MG PO SCH (08:39)
[2019-03-05] MEDS: PHENYTOIN SODIUM EXTENDED 100 MG CAPSULE PO SCH (08:40)
[2019-03-05] MEDS: SENNOSIDES/DOCUSATE 8.6/50MG TABLET. PO SCH (08:40)
[2019-03-05] MEDS: MULTIVITAMIN with MINERAL TABLET. PO SCH (08:40)
[2019-03-05] MEDS: CITALOPRAM 20 MG TABLET. PO SCH (08:40)
[2019-03-05] MEDS: ASPIRIN 325 MG TABLET PO SCH (08:40)
[2019-03-05] MEDS: carBAMazepine 200 MG TABLET PO SCH (08:40)
[2019-03-05] MEDS: LISINOPRIL 10 MG TABLET PO SCH (08:41)
[2019-03-05] MEDS: FLUTICASONE 50MCG/NASAL SPRAY 16GM BOTTLE. NS SCH (08:50)
--- NOTE | 2019-03-05 09:11 | NUR ---
SW following pt for dc planning. Chart reviewed and discussed with RN. Pt is a resident at [facility]: [phone]. PT/OT recommends home with assistance. No needs noted at this time. Pt will tentatively return to [facility] today.
--- NOTE | 2019-03-05 09:39 | PDOC ---
PROGRESS NOTES Subjective Subjective feels good ,ready to go home Objective Objective Vital Signs Date Time Temp Pulse Resp B/P (MAP) Pulse Ox O2 Delivery O2 Flow Rate FiO2 03/05/19 08:41 50 132/72 03/05/19 07:00 98.4 18 95 Room Air 98.4 Intake and Output 03/05/19 06:59 Intake Total 380 ml Output Total 850 ml Balance -470 ml Intake Oral 380 ml Output Urine Total 850 ml # Voids 3 # Bowel Movements 1 Physical Exam Abdomen: Soft, No tenderness Heart: Regular rate Extremities: No edema General: Alert, Oriented X3 HEENT: Atraumatic, PERRLA Lungs: Clear to auscultation MUSCULOSKELETAL: No swelling Diagnosis Problem List Problems Medical Problems: (1) Syncope Status: Acute Assessment Assessment Problems Medical Problems: (1) Syncope Status: Acute FINAL IMPRESSION: 1. Syncope. 2. Bradycardia. 3. History of seizures. 4. Cerebral palsy. 5. Recent increase in risperidone may be contributing the problems. PLAN: Monitor hr 44 at night ,no pauses ECHO today. home today. off Resperidol. labs good. out pt event monitor. At this time, is admit to the hospital. The patient was admitted, was put on quality assurance monitor body. No further bradycardia noted. We will get an echocardiogram to look at left ventricular function, probably may need outpatient Holter. We will leave it to Cardiology and PT/OT and review the therapeutic levels of medications. If it is okay, probably we will be able to discharge later today. I spoke with the patient's sister. Plan Plan of Care Problems Medical Problems: (1) Syncope Status: Acute Comment Review of Relevant I have reviewed the following items christo (where applicable) has been applied. Medications Current Medications Hydralazine HCl (Apresoline Inj) 10 mg PRN Q4HRS PRN IVP ELEVATED BP, SEE COMMENTS Last administered on 03/04/19at 16:30; Start 03/04/19 at 16:30 Lisinopril (Prinivil) 10 mg DAILY PO Last administered on 03/05/19at 08:41; Start 03/04/19 at 16:45 Vitals/I & O Vital Sign - Last 24 Hours 03/04/19 03/04/19 03/04/19 03/04/19 11:00 13:00 13:02 13:04 Temp 98.6 98.6 Pulse 52 56 57 63 Resp 18 B/P (MAP) 146/71 (96) 166/81 (109) 176/80 (112) 181/100 (127) Pulse Ox 93 96 94 94 O2 Delivery Room Air Room Air Room Air Room Air 03/04/19 03/04/19 03/04/19 03/04/19 15:00 16:30 18:15 19:27 Temp 98.2 98.4 98.2 98.4 Pulse 58 62 62 51 Resp 16 B/P (MAP) 153/88 (109) 177/81 177/81 163/87 (112) Pulse Ox 94 94 O2 Delivery Room Air Room Air 03/04/19 03/04/19 03/05/19 03/05/19 20:20 23:34 03:51 07:00 Temp 98.5 97.5 98.4 98.5 97.5 98.4 Pulse 51 43 50 Resp 16 18 18 B/P (MAP) 124/77 (93) 124/88 (100) 132/72 (92) Pulse Ox 93 95 95 O2 Delivery Room Air Room Air Room Air Room Air 03/05/19 08:41 Pulse 50 B/P (MAP) 132/72 Intake and Output 03/04/19 03/04/19 03/05/19 14:59 22:59 06:59 Intake Total 380 ml Output Total 350 ml 500 ml Balance -350 ml -120 ml XIOMARA POZO MD Mar 05, 2019 09:39
[2019-03-05 11:00] VITALS: BP 148/71
--- NOTE | 2019-03-05 11:26 | CARD ---
MR#: [id number] Date of Study: 03/05/2019 Ordering Physician: XIOMARA POZO, Referring Physician: XIOMARA POZO, Tech: Sabrina Arana [facility] APPROVED REPORT EXAM: Two-dimensional and M-mode echocardiogram with Doppler and color Doppler. Other Information Quality : Technically LimitedHR: 50bpm Rhythm : BradycardiaTechnically limited study due to body habitus. INDICATION Arrhythmia 2D DIMENSIONS RVDd3.0 (2.9-3.5cm)Left Atrium(2D)3.4 (1.6-4.0cm) IVSd1.3 (0.7-1.1cm)Aortic Root(2D)3.3 (2.0-3.7cm) LVDd4.1 (3.9-5.9cm)LVOT Diameter2.0 (1.8-2.4cm) PWd1.2 (0.7-1.1cm)LVDs3.0 (2.5-4.0cm) FS (%) 28.1 %SV41.0 ml LVEF(%)54.9 (>50%) M-Mode DIMENSIONS Left Atrium(MM)3.81 (2.5-4.0cm)Aortic Root3.07 (2.2-3.7cm) Aortic Valve AoV Peak Jason.120.1cm/sAoV VTI27.2cm AO Peak GR.5.8mmHgLVOT VTI 17.13cm AO Mean GR.3mmHgAVA (VTI)2.00cm2 AI P 1/2 Bach133cr Mitral Valve MV E Qadqmlhj13.6cm/sMV DECEL EPWE767ot MV A Tctaasvv14.3cm/sE/A Ratio4.7 MV A Bflcoopo426at Tricuspid Valve TR P. Mqcooved953dd/sRAP VEGSLLRO1wgOy TR Peak Gr.37esMwQCZH04ucPj LEFT VENTRICLE The left ventricle is normal size. There is mild concentric left ventricular hypertrophy. The left ve ntricular systolic function is normal and the ejection fraction is within normal range. The Ejection Fraction is 55-60%. There is normal LV segmental wall motion. Transmitral Doppler flow pattern is Gra de I-abnormal relaxation pattern. RIGHT VENTRICLE The right ventricle is normal size. There is normal right ventricular wall thickness. The right ventr icular systolic function is normal. ATRIA The left atrium size is normal. The right atrium size is normal. The interatrial septum is intact wit h no evidence for an atrial septal defect or patent foramen ovale as noted on 2-D or Doppler imaging. AORTIC VALVE The aortic valve is normal in structure and function. The aortic valve is trileaflet. Doppler and Col or Flow revealed trace aortic regurgitation. There is no significant aortic valvular stenosis. There is no aortic valvular vegetation. MITRAL VALVE The mitral valve is normal in structure and function. There is no evidence of mitral valve prolapse. There is no mitral valve stenosis. Doppler and Color Flow revealed no mitral valve regurgitation note d. TRICUSPID VALVE The tricuspid valve is normal in structure and function. Doppler and Color Flow revealed trace tricus pid regurgitation. The PA pressure was estimated at 28 mmHg. There is no tricuspid valve prolapse or vegetation. There is no tricuspid valve stenosis. PULMONIC VALVE The pulmonic valve is not well visualized. GREAT VESSELS The aortic root is normal in size. The ascending aorta is normal in size. The IVC is normal in size a nd collapses >50% with inspiration. PERICARDIAL EFFUSION There is no evidence of significant pericardial effusion. Critical Notification Critical Value: No <Conclusion> The left ventricular systolic function is normal and the ejection fraction is within normal range. Th e Ejection Fraction is 55-60%. There is normal LV segmental wall motion. Signed by : Zia Billy, Electronically Approved : 03/05/2019 11:26:10
--- NOTE | 2019-03-05 12:58 | PDOC ---
ZEUS FERNANDEZ APRN 03/05/19 1258: CARDIO Progress Notes Date and Time Date of Service 03/05/2019 Time of Evaluation 1240 Subjective Subjective: No Chest Pain, No shortness of breath, No Palpitations Vitals Vitals Vital Signs Date Time Temp Pulse Resp B/P (MAP) Pulse Ox O2 Delivery O2 Flow Rate FiO2 03/05/19 11:00 98.3 55 18 148/71 (96) 95 Room Air 98.3 Weight Weight [ ] Input and Output Intake and Output Intake and Output 03/05/19 07:00 Intake Total 380 ml Output Total 850 ml Balance -470 ml Intake Oral 380 ml Output Urine Total 850 ml # Voids 3 # Bowel Movements 1 Physical Exam HEENT: Neck Supple W Full Motion Chest: Symmetric LUNGS: Clear to Auscultation Heart: S1S2, RRR Abdomen: Soft N/T Extremities: No Calf Tenderness Neurology: alert, oriented, follow commands Assessment Assessment 1. Syncope. No orthostasis. EF and WM nml. Possibly vasovagal, unclear duration and not related to seizure 2. Bipolar disorder, seizure disorder: Continue current treatment 3. Asymptomatic SB: lowest low 40s, no pauses per staff. Monitor is currently off as pt is getting ready to go home. 4. Hx of seziure: on depakote and dilantin 5. HTN: controlled. Recommendations 1. Continue BP regimen 2. Outpt event monitor for 2 weeks and follow up in 4 weeks. 3. No AV george blocking agents. NOEMY CALL MD 03/06/19 0658: CARDIO Progress Notes Assessment Assessment Patient seen and examined 03/05/19. Agree with [employer]'s assessment and plan. Syncope probably vasovagal 2-D echo showed normal LV systolic function Plan event monitor as an outpatient EZUS FERNANDEZ APRN Mar 05, 2019 12:58 NOEMY CALL MD Mar 06, 2019 06:58
--- NOTE | 2019-03-05 14:18 | NUR ---
Discharge Note: WENDY LINARES [address] [place] [address] Discharge instructions and discharge home medications reviewed with Bobbin Drier and a copy given. All questions have been answered and understanding verbalized. The following instructions and handouts were given: FOLLOW UP INSTRUCTIONS, MEDICATION LISTS, AND ACTIVITY LEVELS. Discontinued lines and drains: Peripheral IV DISCONTINUED AND CATHETER intact. Patient discharged to [facility] with Primary Bobbin Drier via Wheelchair.
== END 2019-03-05 14:00 | disposition home or self-care (01) | DRG 312 ==
LOC: ER 09:25 → ED HOLD 12:49 → 6 SOUTH 15:58
PROVIDERS: ADMIT Internal Medicine; ATTEND Internal Medicine
DX: R55 Syncope and collapse (principal); G40.909 Epilepsy, unspecified, not intractable, without status epilepticus; F31.9 Bipolar disorder, unspecified; G80.9 Cerebral palsy, unspecified; T43.595A Adverse effect of other antipsychotics and neuroleptics, initial encounter; G93.89 Other specified disorders of brain; I10 Essential (primary) hypertension; Y92.89 Other specified places as the place of occurrence of the external cause
CPT/HCPCS: 36415; 70450; 71045; 80053; 80061; 80156; 80164; 80185; 81001; 84443; 84484; 85025; 90471; 90686; 93005; 93306; 96360; J0360; J7030; J8597; 97110; 97116; 97530; 97535; 99285-25; G0378

== ENCOUNTER 2019-03-20 11:57 | Inpatient (IN) | payer MEDICARE, MEDICAID ==
[~2019-03-20] VITALS: Ht 175.3 cm; Wt 100.3 kg
[~2019-03-20 11:57] MED LIST changes: +ASPI325T8 PO; +CALC500T10 PO; +CETI10TA16 PO; +CHLO15MO2 PO; +ESCITALOPRAM OX20 MG PO; +FERR325T20 PO; +FLUT16SP NS; +PHEN200C3 PO; +RISP2TAB3 PO; +[UNRECOGNIZED DRUG - CODE] PO
[2019-03-20] MEDS ORDERED: IV NORMAL SALINE 1000ML BAG 1,000 ML IV ONE (12:30)
--- NOTE | 2019-03-20 13:09 | RAD ---
CT HEAD WO CONTRAST History: Syncope Comparison: March 03, 2019 Technique: Noncontrast CT imaging was performed of the head. Exposure: One or more of the following individualized dose reduction techniques were utilized for this examination: 1. Automated exposure control 2. Adjustment of the mA and/or kV according to patient size 3. Use of iterative reconstruction technique. Findings: No acute intracranial hemorrhage. Extensive left MCA territory cystic encephalomalacia, unchanged. Ex vacuo dilatation of the left lateral ventricle, unchanged. No hydrocephalus. Mild brain parenchymal volume loss. Moderate cerebellar volume loss, unchanged. Imaged orbits are unremarkable. Small right maxillary sinus mucous retention cysts or polyps. Mild ethmoid sinus mucosal thickening. Impression: 1. No acute intracranial abnormality. 2. 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 3. Moderate cerebellar volume loss, unchanged. Electronically signed by: Jovanny Munoz DO (03/20/2019 1:06 PM) [facility]
--- NOTE | 2019-03-20 13:19 | PHYS DOC ---
Past Medical History Past Medical History: Bipolar, Seizure, Other Additional Past Medical Histor: Cerebal palsy Past Surgical History: Other Additional Past Surgical Histo: rt foot and leg surgery and rt hand Alcohol Use: None Drug Use: None Adult General Chief Complaint Chief Complaint: HEADACHE HPI HPI Patient is a 58 year old male with hx of bipolar, CP with right sided deficits who presents to the ED via EMS to be evaluated for syncope episode. Patient reports he had gone to his PCPs office to be seen for headache his had for 2 weeks he states he passed out at the PCPs office and they had to call 911. Patient denies any chest pain, denies any shortness of breath. He states he had a similar episode 2 weeks ago where he was admitted but he feels he was discharged too quick. He describes the headache as throbbing and on top of his head. Denies any other associated symptoms including nausea/ vomiting. Review of Systems Review of Systems Constitutional: Denies fever or chills [] Eyes: Denies change in visual acuity, redness, or eye pain [] HENT: Denies nasal congestion or sore throat [] Respiratory: Denies cough or shortness of breath [] Cardiovascular: No additional information not addressed in HPI [] GI: Denies abdominal pain, nausea, vomiting, bloody stools or diarrhea [] : Denies dysuria or hematuria [] Musculoskeletal: Denies back pain or joint pain [] Integument: Denies rash or skin lesions [] Neurologic: Reports syncope and headache, denies focal weakness or sensory changes [] All other systems were reviewed and found to be within normal limits, except as documented in this note. Current Medications Current Medications Current Medications Medications (Trade) Dose Ordered Sig/Tierney Start Time Stop Time Status Last Admin Dose Admin Sodium Chloride 1,000 ml @ 1,000 mls/hr 1X ONCE 03/20/19 12:30 03/20/19 13:29 DC 03/20/19 13:36 1,000 MLS/HR Allergies Allergies Allergies Coded Allergies Type Severity Reaction Last Updated Verified No Known Drug Allergies 09/25/13 No Physical Exam Physical Exam Constitutional: Well developed, well nourished, no acute distress, non-toxic appearance. [] HENT: Normocephalic, atraumatic, bilateral external ears normal, oropharynx moist, no oral exudates, nose normal. [] Eyes: PERRLA, EOMI, conjunctiva normal, no discharge. [] Neck: Normal range of motion, no tenderness, supple, no stridor. [] Cardiovascular:Heart rate regular rhythm, no murmur [] Lungs & Thorax: Bilateral breath sounds clear to auscultation [] Abdomen: Bowel sounds normal, soft, no tenderness, no masses, no pulsatile masses. [] Skin: Warm, dry, small amount of erythematous rash noted on patient's right forehead rash suspicious signs of shingles Back: No tenderness, no CVA tenderness. [] Extremities: No tenderness, no cyanosis, no clubbing, right upper extremity deformity noted consistent with CP. Neurologic: Alert and oriented X 3, normal motor function, normal sensory function, no focal deficits noted. Cranial nerves II through XII intact. Psychologic: Affect normal, judgement normal, mood normal. [] Current Patient Data Vital Signs Vital Signs Date Time Temp Pulse Resp B/P (MAP) Pulse Ox O2 Delivery O2 Flow Rate FiO2 03/20/19 12:11 98.3 50 16 180/89 (119) 100 Room Air 98.3 EKG EKG [address] Zapata sinus bradycardia HR 42 no STEMI Radiology/Procedures Radiology/Procedures []PROCEDURE: CT HEAD WO CONTRAST CT HEAD WO CONTRAST History: Syncope Comparison: March 03, 2019 Technique: Noncontrast CT imaging was performed of the head. Exposure: One or more of the following individualized dose reduction techniques were utilized for this examination: 1. Automated exposure control 2. Adjustment of the mA and/or kV according to patient size 3. Use of iterative reconstruction technique. Findings: No acute intracranial hemorrhage. Extensive left MCA territory cystic encephalomalacia, unchanged. Ex vacuo dilatation of the left lateral ventricle, unchanged. No hydrocephalus. Mild brain parenchymal volume loss. Moderate cerebellar volume loss, unchanged. Imaged orbits are unremarkable. Small right maxillary sinus mucous retention cysts or polyps. Mild ethmoid sinus mucosal thickening. Impression: 1. No acute intracranial abnormality. 2. 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 3. Moderate cerebellar volume loss, unchanged. Electronically signed by: Jovanny Munoz DO (03/20/2019 1:06 PM) [facility] DICTATED and SIGNED BY: JOVANNY MUNOZ DO DATE: 03/20/19 1306 PROCEDURE: PORTABLE CHEST 1V PORTABLE CHEST 1V History: Syncope Comparison: March 03, 2019. Findings: No consolidation or pleural effusion. Normal heart size. No pneumothorax. Impression: 1. No acute cardiopulmonary process. Electronically signed by: Jovanny Munoz DO (03/20/2019 1:25 PM) [facility] DICTATED and SIGNED BY: JOVANNY MUNOZ DO DATE: 03/20/19 8144 Course & Med Decision Making Course & Med Decision Making Pertinent Labs and Imaging studies reviewed. (See chart for details) This is a 58-year-old male patient presenting to the ED today to be evaluated after having a syncope episode at the doctor's office where he was being evaluated for headache he's had for 2 weeks. Patient noted for shingles on the right forehead. CT of the head is negative for any acute findings. Chest x-ray is negative. Labs are negative for any acute findings Blood pressure was running high at 201/89 with heart rates in the 40s to 50s. Patient was given hydralazine. Spoke with -was accepted patient for admission and requested cardiology consult wilfredo COUNTY MANAGER came and saw patient in the ED. Dragon Disclaimer Dragon Disclaimer This electronic medical record was generated, in whole or in part, using a voice recognition dictation system. Departure Departure Impression: Primary Impression: Syncope Additional Impressions: Headache Shingles Accelerated hypertension Disposition: ADMITTED INPATIENT Condition: STABLE Referrals: SANTO SMART (PCP) Problem Qualifiers Primary Impression: Syncope Syncope type: unspecified Qualified Codes: R55 - Syncope and collapse Additional Impressions: Headache Headache type: unspecified Headache chronicity pattern: unspecified pattern Intractability: not intractable Qualified Codes: R51 - Headache Shingles Herpes zoster complications: without complications Qualified Codes: B02.9 - Zoster without complications FIDELINA LARA NATURAL RESOURCES MANAGER Mar 20, 2019 13:19
--- NOTE | 2019-03-20 13:27 | RAD ---
PORTABLE CHEST 1V History: Syncope Comparison: March 03, 2019. Findings: No consolidation or pleural effusion. Normal heart size. No pneumothorax. Impression: 1. No acute cardiopulmonary process. Electronically signed by: Jovanny Munoz DO (03/20/2019 1:25 PM) [facility]
[2019-03-20 14:01] LABS: BASO # 0.1 x10^3/uL (0.0-0.2); BASO % 1 % (0-3); EOS # 0.1 x10^3/uL (0.0-0.7); EOS % 1 % (0-3); HEMATOCRIT 42.4 % (39.0-53.0); HEMOGLOBIN 14.5 g/dL (13.0-17.5); LYMPH % 24 % (24-48); MEAN CORPUSCULAR HEMOGLOBIN 31 pg (25-35); MEAN CORPUSCULAR HGB CONC 34 g/dL (31-37); MEAN CORPUSCULAR VOLUME 92 fL (79-100); MONO % 12 % (0-9); NEUT # 5.4 x10^3/uL (1.8-7.7); NEUT % 63 % (31-73); PLATELET COUNT 226 x10^3/uL (140-400); RED BLOOD COUNT 4.63 x10^6/uL (4.30-5.70); RED CELL DISTRIBUTION WIDTH 13.7 % (11.5-14.5); WHITE BLOOD COUNT 8.6 x10^3/uL (4.0-11.0)
[2019-03-20 14:12] LABS: CREATININE 0.9 mg/dL (0.7-1.3); GFR 87.3; POTASSIUM 3.7 mmol/L (3.5-5.1)
[2019-03-20 14:19] LABS: ALBUMIN 3.5 g/dL (3.4-5.0); ALBUMIN/GLOBULIN RATIO 0.9 (1.0-1.7); MAGNESIUM 2.3 mg/dL (1.8-2.4); TOTAL BILIRUBIN 0.3 mg/dL (0.2-1.0); TOTAL PROTEIN 7.3 g/dL (6.4-8.2)
[2019-03-20] MEDS ORDERED: ACYCLOVIR SODIUM 500 MG in IV DEXTROSE 5% 100ML 100 ML IV STA (14:19)
[2019-03-20 14:30] LABS: CREATINE KINASE 187 U/L (39-308)
[2019-03-20] MEDS ORDERED: ONDANSETRON PF 4 MG/2 ML VIAL. IV PRN (14:30)
[2019-03-20] MEDS ORDERED: hydrALAZINE 20 MG/ML VIAL. IVP PRN (14:30)
[2019-03-20] MEDS ORDERED: hydrALAZINE 20 MG/ML VIAL. IVP ONE (14:30)
--- NOTE | 2019-03-20 15:19 | PDOC2 ---
ZEUS FERNANDEZ ASTROBIOLOGIST 03/20/19 1519: CARDIAC CONSULT DATE OF CONSULT Date of Consult DATE: 03/20/19 TIME: 15:00 REASON FOR CONSULT Reason for Consult: Syncope REFERRING PHYSICIAN Referring Physician: Jeimy SOURCE Source: Chart review, Patient HISTORY OF PRESENT ILLNESS HISTORY OF PRESENT ILLNESS This is a pleasant 58 yo male admitted for complains of passing out. He was at his PCPs office when he passed out. No focal neuro symptoms or chest pain or SOA. No n/v or diarrhea. He has been feeling tired lately and has been having right unilateral ANDERSON that was throbbing and he also has unilateral cluster lesions to his forehead and scalp. In addition he also has been having high BP with SBP in the 230s. It is unclear if he has been taking all his regular BP regimen in the group as he is not the one managing this but the oil well cable tool operator over there. No injuries in relation to the passing out. I saw him from his recent admission and was noted with bradycardia but no notable pauses at that time and heart monitor was placed on him that he was supposed to wear for 2 weeks but took it off after a week of using it thinking that his symptoms of not feeling good and HAs are related to his heart monitor. IT has not been shipped so no readings and he was not wearing his event monitor when he passed out at the PCPs office. PAST MEDICAL HISTORY Cardiovascular: HTN, Syncope, Other (DLP) CENTRAL NERVOUS SYSTEM: Seizure, Other (cerebral palsy) Psych: Bipolar Musculoskeletal: Osteoarthritis PAST SURGICAL HISTORY Past Surgical History: Other (leg and foot surgery) FAMILY HISTORY Family History noncontributory SOCIAL HISTORY Smoke: No ALCOHOL: none Drugs: None Lives: Roommate (care home) CURRENT MEDICATIONS CURRENT MEDICATIONS Current Medications Medications (Trade) Dose Ordered Sig/Tierney Route PRN Reason Start Time Stop Time Status Last Admin Dose Admin Sodium Chloride 1,000 ml @ 1,000 mls/hr 1X ONCE IV 03/20/19 12:30 03/20/19 13:29 DC 03/20/19 13:36 Hydralazine HCl (Apresoline Inj) 10 mg 1X ONCE IVP 03/20/19 14:30 03/20/19 14:31 DC 03/20/19 14:28 ALLERGIES ALLERGIES: Coded Allergies: No Known Drug Allergies (Unverified , 09/25/13) ROS Review of System limited, poor historian, details obtained from sister PHYSICAL EXAM General: Alert, Oriented X3, Cooperative, No acute distress HEENT: Atraumatic, Mucous membr. moist/pink Lungs: Clear to auscultation, Normal air movement Heart: Regular rate (SR/SB), Normal S1, Normal S2, No murmurs Abdomen: Soft, No tenderness Extremities: No cyanosis, No edema Skin: No breakdown, Other (right unilateral cluster lesion with erythema and tenderness) Neuro: Normal speech, Sensation intact Psych/Mental Status: Mental status NL, Mood NL MUSCULOSKELETAL: Osteoarthritic changes both hands VITALS/I&O VITALS/I&O: Vital Signs Date Time Temp Pulse Resp B/P (MAP) Pulse Ox O2 Delivery O2 Flow Rate FiO2 03/20/19 14:29 42 20 95 03/20/19 14:28 201/89 03/20/19 12:11 98.3 Room Air 98.3 LABS Lab: Laboratory Tests Test 03/20/19 13:50 White Blood Count 8.6 x10^3/uL (4.0-11.0) Red Blood Count 4.63 x10^6/uL (4.30-5.70) Hemoglobin 14.5 g/dL (13.0-17.5) Hematocrit 42.4 % (39.0-53.0) Mean Corpuscular Volume 92 fL (79-100) Mean Corpuscular Hemoglobin 31 pg (25-35) Mean Corpuscular Hemoglobin Concent 34 g/dL (31-37) Red Cell Distribution Width 13.7 % (11.5-14.5) Platelet Count 226 x10^3/uL (140-400) Neutrophils (%) (Auto) 63 % (31-73) Lymphocytes (%) (Auto) 24 % (24-48) Monocytes (%) (Auto) 12 % (0-9) H Eosinophils (%) (Auto) 1 % (0-3) Basophils (%) (Auto) 1 % (0-3) Neutrophils # (Auto) 5.4 x10^3/uL (1.8-7.7) Lymphocytes # (Auto) 2.0 x10^3/uL (1.0-4.8) Monocytes # (Auto) 1.0 x10^3/uL (0.0-1.1) Eosinophils # (Auto) 0.1 x10^3/uL (0.0-0.7) Basophils # (Auto) 0.1 x10^3/uL (0.0-0.2) Sodium Level 146 mmol/L (136-145) H Potassium Level 3.7 mmol/L (3.5-5.1) Chloride Level 106 mmol/L (98-107) Carbon Dioxide Level 32 mmol/L (21-32) Anion Gap 8 (6-14) Blood Urea Nitrogen 23 mg/dL (8-26) Creatinine 0.9 mg/dL (0.7-1.3) Estimated GFR (Cockcroft-Gault) 87.3 BUN/Creatinine Ratio 26 (6-20) H Glucose Level 105 mg/dL (70-99) H Calcium Level 9.0 mg/dL (8.5-10.1) Magnesium Level 2.3 mg/dL (1.8-2.4) Total Bilirubin 0.3 mg/dL (0.2-1.0) Aspartate Amino Transferase (AST) 17 U/L (15-37) Alanine Aminotransferase (ALT) 38 U/L (16-63) Alkaline Phosphatase 68 U/L (46-116) Creatine Kinase 187 U/L (39-308) Creatine Kinase MB (Mass) < 0.5 ng/mL (0.0-3.6) Creatine Kinase MB Relative Index % (0-4) Troponin I Quantitative < 0.017 ng/mL (0.000-0.055) XK-Aix-W-Type Natriuretic Peptide 208 pg/mL (0-124) H Total Protein 7.3 g/dL (6.4-8.2) Albumin 3.5 g/dL (3.4-5.0) Albumin/Globulin Ratio 0.9 (1.0-1.7) L Thyroid Stimulating Hormone (TSH) 1.717 uIU/mL (0.358-3.74) Laboratory Tests 03/20/19 13:50 Laboratory Tests 03/20/19 13:50 ECHOCARDIOGRAM ECHOCARDIOGRAM <Conclusion> The left ventricular systolic function is normal and the ejection fraction is within normal range. The Ejection Fraction is 55-60%. There is normal LV segmental wall motion. DATE: 03/05/19 1108 ASSESSMENT/PLAN ASSESSMENT/PLAN 1. Syncope: possible vasovagal episode 2. Right unilateral ANDERSON with suspected shingles 3. Accelerated HTN: unclear of regimen or he has been taking any 4. DLP 5. Hx of cerebral palsy 6. Hx of CVA: noted per CT 7. Obesity 8. Sinus bradycardia: lowest in the 40s, no pauses Recommendations 1. Outpt event monitor will need to be shipped back from the company, only wore it for 1 wk instead of 2 and was not wearing it when he passed out. Will review when available 2. No AV george blocking agents. Norvasc. Hydralazine IV PRN 3. Antiviral per PCP 4. Carotid doppler. 5. Start on statin and ASA. NOEMY CALL MD 03/20/19 1603: CARDIAC CONSULT ASSESSMENT/PLAN ASSESSMENT/PLAN Patient seen and examined. Agree with PARKING LOT SIGNALER's assessment and plan. Syncope most probably vasovagal Headache with rash right side of forehead suspicious for shingles Agree with Norvas for blood pressure control Recent 2-D echo showed normal LV function We will review recent event monitor recording Thank you for your consultation ZEUS FERNANDEZ APRN Mar 20, 2019 15:19 NOEMY CALL MD Mar 20, 2019 16:03
[2019-03-20 15:30] VITALS: BP 184/79
--- NOTE | 2019-03-20 15:31 | EKG ---
[facility] [address] [place] [address] Test Date: 2019-03-20 Test Time: 13:35:20 Pat Name: WENDY LINARES Department: Room: Gender: M Electrotype Servicer: : 1960 Requested By: FIDELINA LARA Order Number: [id number] Reading MD: Measurements Intervals Broussard Rate: 41 P: 33 IL: 142 QRS: 14 QRSD: 84 T: 34 QT: 474 QTc: 395 Interpretive Statements SINUS BRADYCARDIA NON SPECIFIC T ABNORMALITY BORDERLINE ECG No previous ECG available for comparison
[2019-03-20] MEDS ORDERED: ASPIRIN ENTERIC COATED 81 MG TABLET.DR. PO SCH (16:00)
--- NOTE | 2019-03-20 16:26 | PDOC ---
Provider Note Provider Note Pt seen,H&P dictated#[id number] XIOMARA POZO MD Mar 20, 2019 16:26
[2019-03-20] MEDS ORDERED: predniSONE 10 MG TABLET PO ONE (16:30)
[2019-03-20 16:43] LABS: BILIRUBIN,URINE NEGATIVE (NEG); CLARITY,URINE CLEAR; COLOR,URINE YELLOW; NITRITE,URINE NEGATIVE (NEG); PH,URINE 6.5; PROTEIN,URINE NEGATIVE (NEG-TRACE)
[2019-03-20 16:47] LABS: BACTERIA,URINE 0 /HPF (0-FEW); RBC,URINE OCC /HPF (0-2); WBC,URINE 0 /HPF (0-4)
[2019-03-20 16:49] LABS: BARBITURATES NEG (NEG); BENZODIAZEPINES NEG (NEG); CANNABINOIDS NEG (NEG); COCAINE NEG (NEG); METHADONE NEG (NEG); OPIATES NEG (NEG); PHENCYCLIDINE NEG (NEG)
[2019-03-20 16:51] LABS: AMPHETAMINE/METHAMPHETAMINE NEG (NEG)
--- NOTE | 2019-03-20 16:52 | PREOP HP ---
DATE OF SERVICE: ATTENDING PHYSICIAN: Angle Rai MD PRIMARY PHYSICIAN: Dr. Foley. REASON FOR ADMISSION TO THE HOSPITAL: Trigeminal nerve herpes zoster, seizure headaches. HISTORY OF PRESENT ILLNESS: The patient with decreased is a 58-year-old male. He is mentally impaired and is in a usp. The patient was admitted to the hospital 2 weeks ago for seizures. The patient has chronic refractory seizures and he lives in a usp in the last one week. He says he had developed headache, got progressively worse and today seen Dr. Foley, in the office and seizure headaches and change in mental patient was sent to the Emergency Room. CT head was negative, old encephalomalacia. The patient was admitted with herpes zoster involving the trigeminal nerve mostly ophthalmic branch and was started on acyclovir IV and Ophthalmology was consulted. PAST MEDICAL HISTORY: History of cerebral palsy, seizures, bipolar. PAST SURGICAL HISTORY: Surgery on the leg and the foot. ALLERGIES: No known drug allergies. MEDICATIONS AT HOME: Aspirin 325 daily, carbamazepine 200 mg 3 times daily, Depakote 750 mg daily, escitalopram 20 mg daily, Flonase daily, vitamin daily, Dilantin total of 300 mg daily, senna daily, Gabitril 12 mg twice a day, trazodone 100 mg at bedtime, calcium. PERSONAL HISTORY: No smoking, alcohol, drug abuse. SOCIAL HISTORY: Lives in a usp. FAMILY HISTORY: Unremarkable. REVIEW OF SYMPTOMS: Complains of severe headache, throbbing pain. PHYSICAL EXAMINATION: GENERAL: The patient is not in any distress except for pain and headache. VITAL SIGNS: At the time of admission shows a temperature 98, pulse 50, respirations 16, blood pressure 180/89, 100% on room air. HEENT: Head is atraumatic. The patient has blisters on the forehead, right side and also his eyelid is swollen. Oral cavity: Has bad teeth. NECK: Supple. Thyroid not enlarged. JVD not elevated. CHEST: Symmetrical. CARDIOVASCULAR: S1, S2. LUNGS: Clear to auscultation. ABDOMEN: Soft, bowel sounds present, no mass palpable. EXTERNAL GENITALIA: Deferred. EXTREMITIES: No calf tenderness, no edema. NEUROLOGIC: Moving all extremities. No focal deficits noted. LABORATORY DATA: Shows a white count of 8, hemoglobin 14, platelets 226. Electrolytes show sodium 146, potassium 3.7, chloride 106, bicarbonate 32, BUN 28, creatinine 0.9, glucose 105. Magnesium 2.3. LFTs normal. TSH normal. Had a CT head, which shows a chronic left middle cerebral territory with infarct. Chest x-ray is negative. FINAL IMPRESSION: 1. Acute Herpes zoster rt side. 2. 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 3. Seizure headache. 4. History of refractory seizures, on 3 medications. 4. History of cerebral palsy. PLAN: At this time, was admitted to the hospital. IV acyclovir was given and also add prednisone to prevent postherpetic neuralgia and Ophthalmology was consulted. Pain control with Lortab. Continue seizure medications. See how he improves in the next 24-48 hours. ANGLE RAI MD DR: JESUS/stephen JOB#: [id number] / [id number] SANTO Santacruz
[2019-03-20] MEDS: carBAMazepine 200 MG TABLET PO SCH ×2 (18:17→21:40)
[2019-03-20] MEDS: ACYCLOVIR 200 MG CAPSULE. PO SCH ×2 (18:19→21:40)
[2019-03-20] MEDS: amLODIPine BESYLATE 10 MG TABLET PO SCH (18:22)
[2019-03-20] MEDS: HYDROcodone/APAP 10/325 1 TAB TABLET PO PRN (18:22)
--- NOTE | 2019-03-20 18:41 | NUR ---
IV Acyclovir was not available.
[2019-03-20 19:35] VITALS: BP 150/60
[2019-03-20] MEDS ORDERED: MECL12.52 PO (21:00)
[2019-03-20] MEDS ORDERED: CHOL10003 PO (21:00)
[2019-03-20] MEDS ORDERED: LISI10TA2 PO (21:00)
[2019-03-20] MEDS: FLUTICASONE 50MCG/NASAL SPRAY 16GM BOTTLE. NS SCH (21:38)
[2019-03-20] MEDS: TIAGABINE 4 MG PO SCH (21:39)
[2019-03-20] MEDS: PHENYTOIN SODIUM EXTENDED 100 MG CAPSULE PO SCH (21:39)
[2019-03-20] MEDS: SENNOSIDES/DOCUSATE 8.6/50MG TABLET. PO SCH (21:39)
[2019-03-20] MEDS: CALCIUM CARBONATE 500 MG TAB.CHEW PO SCH (21:40)
[2019-03-20] MEDS: ATORVASTATIN CALCIUM 10 MG TABLET. PO SCH (21:40)
[2019-03-20] MEDS: traZODone 100 MG TABLET. PO SCH (21:40)
[2019-03-20 23:30] VITALS: BP 181/77
[2019-03-21] MEDS: HYDROcodone/APAP 10/325 1 TAB TABLET PO PRN ×4 (00:28→22:15)
[2019-03-21 00:54] VITALS: BP 138/75
[2019-03-21 03:40] VITALS: BP 143/75
[2019-03-21 05:46] LABS: BASO % 0 % (0-3); EOS % 0 % (0-3); HEMATOCRIT 42.9 % (39.0-53.0); HEMOGLOBIN 14.4 g/dL (13.0-17.5); LYMPH # 1.1 x10^3/uL (1.0-4.8); LYMPH % 15 % (24-48); MEAN CORPUSCULAR HEMOGLOBIN 31 pg (25-35); MEAN CORPUSCULAR HGB CONC 34 g/dL (31-37); MEAN CORPUSCULAR VOLUME 93 fL (79-100); MONO # 0.7 x10^3/uL (0.0-1.1); MONO % 9 % (0-9); NEUT # 5.9 x10^3/uL (1.8-7.7); NEUT % 76 % (31-73); PLATELET COUNT 238 x10^3/uL (140-400); RED BLOOD COUNT 4.62 x10^6/uL (4.30-5.70); RED CELL DISTRIBUTION WIDTH 13.5 % (11.5-14.5); WHITE BLOOD COUNT 7.7 x10^3/uL (4.0-11.0)
[2019-03-21 06:04] LABS: ALBUMIN 3.3 g/dL (3.4-5.0); ALBUMIN/GLOBULIN RATIO 0.8 (1.0-1.7); CALCIUM 8.6 mg/dL (8.5-10.1); CREATININE 0.8 mg/dL (0.7-1.3); POTASSIUM 3.7 mmol/L (3.5-5.1); TOTAL BILIRUBIN 0.4 mg/dL (0.2-1.0); TOTAL PROTEIN 7.5 g/dL (6.4-8.2)
[2019-03-21] MEDS: ACYCLOVIR 200 MG CAPSULE. PO SCH ×5 (06:37→22:13)
--- NOTE | 2019-03-21 07:51 | RAD ---
DOPPLER CAROTID BILAT History: Syncope. Prior CVA Technique: Duplex sonography of the cervical portion of both carotid arteries was performed. Real-time grayscale, color flow Doppler, and Doppler spectral waveform analysis is performed. PQRS Compliance Statement - Stenosis calculations for CT, MR and conventional angiography are based upon measurement of the distal ICA diameter in accordance with the NASCET methodology. Stenosis calculations for carotid ultrasound studies are derived from validated velocity criteria which are known to correlate with the NASCET methodology. Examination degraded due to patient inability to tolerate the right upper neck evaluation. Patient refused examination of the right upper neck. Findings: Right side: Peak systolic flow velocity of the CCA is 110 cm/sec. No significant plaque formation is identified. Left side: Peak systolic flow velocity of the CCA is 114 cm/sec. Peak systolic flow velocity of the ICA is 50 cm/sec. The ICA/CCA ratio is 0.43. Peak end diastolic flow velocity of the ICA is 11 cm/sec. Peak systolic flow velocity of the ECA is 100 cm/sec. No significant plaque formation is identified. Vertebral arteries: Bilateral vertebral arteries demonstrate antegrade flow. IMPRESSION: 1. Examination degraded due to patient's inability to tolerate evaluation of the right proximal internal carotid artery. Patient refused evaluation. Right internal carotid artery not evaluated. 2. No evidence of left internal carotid artery stenosis or occlusion. Electronically signed by: Jovanny Munoz DO (03/21/2019 7:49 AM) [facility]
[2019-03-21 08:50] VITALS: BP 180/93
[2019-03-21] MEDS: TIAGABINE 4 MG PO SCH ×2 (08:53→22:12)
[2019-03-21] MEDS: ASPIRIN 325 MG TABLET PO SCH (08:53)
[2019-03-21] MEDS: FLUTICASONE 50MCG/NASAL SPRAY 16GM BOTTLE. NS SCH ×2 (08:53→22:14)
[2019-03-21] MEDS: PHENYTOIN SODIUM EXTENDED 100 MG CAPSULE PO SCH ×2 (08:54→22:12)
[2019-03-21] MEDS: amLODIPine BESYLATE 10 MG TABLET PO SCH (08:54)
[2019-03-21] MEDS: CITALOPRAM 20 MG TABLET. PO SCH (08:54)
[2019-03-21] MEDS: CALCIUM CARBONATE 500 MG TAB.CHEW PO SCH ×2 (08:54→22:12)
[2019-03-21] MEDS: predniSONE 20 MG TABLET PO SCH (08:54)
[2019-03-21] MEDS: carBAMazepine 200 MG TABLET PO SCH ×3 (08:54→22:11)
[2019-03-21] MEDS: SENNOSIDES/DOCUSATE 8.6/50MG TABLET. PO SCH ×2 (08:54→22:11)
[2019-03-21] MEDS: MULTIVITAMIN with MINERAL TABLET. PO SCH (08:55)
--- NOTE | 2019-03-21 09:17 | NUR ---
IP: Pt has extensive shingle lesion on left side of head extending toward eye per nurse Alireza. Pt to be in contact/airborne precautions until lesion are dry anc crusted.
--- NOTE | 2019-03-21 09:56 | PDOC ---
PROGRESS NOTES Subjective Subjective headache and nausea Objective Objective Vital Signs Date Time Temp Pulse Resp B/P (MAP) Pulse Ox O2 Delivery O2 Flow Rate FiO2 03/21/19 08:54 49 143/75 03/21/19 08:50 98.6 16 94 Room Air 98.6 Intake and Output 03/21/19 07:00 Intake Total 670 ml Output Total 1025 ml Balance -355 ml Intake Oral 670 ml Output Urine Total 1025 ml Physical Exam Abdomen: Soft, No tenderness Heart: Regular rate (SR/SB), Normal S1, Normal S2, No murmurs Extremities: No cyanosis, No edema General: Alert, Oriented X3, Cooperative, No acute distress HEENT: Atraumatic, Mucous membr. moist/pink Lungs: Clear to auscultation, Normal air movement MUSCULOSKELETAL: Osteoarthritic changes both hands Neuro: Normal speech, Sensation intact Psych/Mental Status: Mental status NL, Mood NL Skin: Other (right forehead unilateral cluster lesion with erythema and tende rness) Diagnosis Problem List Problems Medical Problems: (1) Accelerated hypertension Status: Acute (2) Cerebral palsy Status: Chronic (3) Headache Status: Acute (4) Herpes zoster Status: Acute (5) Post-seizure headache Status: Acute (6) Refractory seizure Status: Chronic (7) Shingles Status: Acute (8) Syncope Status: Acute Assessment Assessment Problems Medical Problems: (1) Accelerated hypertension Status: Acute (2) Cerebral palsy Status: Chronic (3) Headache Status: Acute (4) Herpes zoster Status: Acute (5) Post-seizure headache Status: Acute (6) Refractory seizure Status: Chronic (7) Shingles Status: Acute (8) Syncope Status: Acute FINAL IMPRESSION: 1. Herpes zoster trigeminal nerve rt side. 2. 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 3. Seizure headache. 4. History of refractory seizures, on 3 medications. 4. History of cerebral palsy. PLAN: seeing eye doctor today. acyclovir po q 4 hours. lortab for pain. labs ok. prednisone added to prevent neuralgia At this time, was admitted to the hospital. IV acyclovir was given and also add prednisone to prevent postherpetic neuralgia and Ophthalmology was consulted. Pain control with Lortab. Continue seizure medications. See how he improves in the next 24-48 hours. Plan Plan of Care Problems Medical Problems: (1) Accelerated hypertension Status: Acute (2) Cerebral palsy Status: Chronic (3) Headache Status: Acute (4) Herpes zoster Status: Acute (5) Post-seizure headache Status: Acute (6) Refractory seizure Status: Chronic (7) Shingles Status: Acute (8) Syncope Status: Acute Comment Review of Relevant I have reviewed the following items christo (where applicable) has been applied. Labs Laboratory Tests Test 03/20/19 13:50 03/20/19 16:15 03/21/19 04:30 White Blood Count 8.6 x10^3/uL (4.0-11.0) 7.7 x10^3/uL (4.0-11.0) Red Blood Count 4.63 x10^6/uL (4.30-5.70) 4.62 x10^6/uL (4.30-5.70) Hemoglobin 14.5 g/dL (13.0-17.5) 14.4 g/dL (13.0-17.5) Hematocrit 42.4 % (39.0-53.0) 42.9 % (39.0-53.0) Mean Corpuscular Volume 92 fL (79-100) 93 fL (79-100) Mean Corpuscular Hemoglobin 31 pg (25-35) 31 pg (25-35) Mean Corpuscular Hemoglobin Concent 34 g/dL (31-37) 34 g/dL (31-37) Red Cell Distribution Width 13.7 % (11.5-14.5) 13.5 % (11.5-14.5) Platelet Count 226 x10^3/uL (140-400) 238 x10^3/uL (140-400) Neutrophils (%) (Auto) 63 % (31-73) 76 % (31-73) Lymphocytes (%) (Auto) 24 % (24-48) 15 % (24-48) Monocytes (%) (Auto) 12 % (0-9) 9 % (0-9) Eosinophils (%) (Auto) 1 % (0-3) 0 % (0-3) Basophils (%) (Auto) 1 % (0-3) 0 % (0-3) Neutrophils # (Auto) 5.4 x10^3/uL (1.8-7.7) 5.9 x10^3/uL (1.8-7.7) Lymphocytes # (Auto) 2.0 x10^3/uL (1.0-4.8) 1.1 x10^3/uL (1.0-4.8) Monocytes # (Auto) 1.0 x10^3/uL (0.0-1.1) 0.7 x10^3/uL (0.0-1.1) Eosinophils # (Auto) 0.1 x10^3/uL (0.0-0.7) 0.0 x10^3/uL (0.0-0.7) Basophils # (Auto) 0.1 x10^3/uL (0.0-0.2) 0.0 x10^3/uL (0.0-0.2) Sodium Level 146 mmol/L (136-145) 140 mmol/L (136-145) Potassium Level 3.7 mmol/L (3.5-5.1) 3.7 mmol/L (3.5-5.1) Chloride Level 106 mmol/L (98-107) 102 mmol/L (98-107) Carbon Dioxide Level 32 mmol/L (21-32) 29 mmol/L (21-32) Anion Gap 8 (6-14) 9 (6-14) Blood Urea Nitrogen 23 mg/dL (8-26) 20 mg/dL (8-26) Creatinine 0.9 mg/dL (0.7-1.3) 0.8 mg/dL (0.7-1.3) Estimated GFR (Cockcroft-Gault) 87.3 100.0 BUN/Creatinine Ratio 26 (6-20) 25 (6-20) Glucose Level 105 mg/dL (70-99) 118 mg/dL (70-99) Calcium Level 9.0 mg/dL (8.5-10.1) 8.6 mg/dL (8.5-10.1) Magnesium Level 2.3 mg/dL (1.8-2.4) Total Bilirubin 0.3 mg/dL (0.2-1.0) 0.4 mg/dL (0.2-1.0) Aspartate Amino Transf (AST/SGOT) 17 U/L (15-37) 20 U/L (15-37) Alanine Aminotransferase (ALT/SGPT) 38 U/L (16-63) 39 U/L (16-63) Alkaline Phosphatase 68 U/L (46-116) 67 U/L (46-116) Creatine Kinase 187 U/L (39-308) Creatine Kinase MB (Mass) < 0.5 ng/mL (0.0-3.6) Creatine Kinase MB Relative Index % (0-4) Troponin I Quantitative < 0.017 ng/mL (0.000-0.055) TY-Irt-F-Type Natriuretic Peptide 208 pg/mL (0-124) Total Protein 7.3 g/dL (6.4-8.2) 7.5 g/dL (6.4-8.2) Albumin 3.5 g/dL (3.4-5.0) 3.3 g/dL (3.4-5.0) Albumin/Globulin Ratio 0.9 (1.0-1.7) 0.8 (1.0-1.7) Thyroid Stimulating Hormone (TSH) 1.717 uIU/mL (0.358-3.74) Urine Collection Type Unknown Urine Color Yellow Urine Clarity Clear Urine pH 6.5 Urine Specific [place] 1.025 Urine Protein Negative mg/dL (NEG-TRACE) Urine Glucose (UA) Negative mg/dL (NEG) Urine Ketones (Stick) Trace mg/dL (NEG) Urine Blood Negative (NEG) Urine Nitrite Negative (NEG) Urine Bilirubin Negative (NEG) Urine Urobilinogen Dipstick 1.0 mg/dL (0.2 mg/dL) Urine Leukocyte Esterase Negative (NEG) Urine RBC Occ /HPF (0-2) Urine WBC 0 /HPF (0-4) Urine Bacteria 0 /HPF (0-FEW) Urine Mucus Mod /LPF Urine Opiates Screen Neg (NEG) Urine Methadone Screen Neg (NEG) Urine Barbiturates Neg (NEG) Urine Phencyclidine Screen Neg (NEG) Urine Amphetamine/Methamphetamine Neg (NEG) Urine Benzodiazepines Screen Neg (NEG) Urine Cocaine Screen Neg (NEG) Urine Cannabinoids Screen Neg (NEG) Urine Ethyl Alcohol Neg (NEG) Medications Current Medications Acetaminophen/ Hydrocodone Bitart (Lortab 10/325) 1 tab PRN Q6HRS PRN PO MODERATE PAIN Last administered on 03/21/19at 06:37; Start 03/20/19 at 16:15 Acyclovir (Zovirax) 800 mg Q4HRS W/A PO Last administered on 03/21/19at 08:54; Start 03/20/19 at 18:00 Acyclovir Sodium 500 mg/Dextrose 110 ml @ 110 mls/hr 1X STAT IV ; Start 03/20/19 at 14:19; Stop 03/20/19 at 15:18; Status DC Amlodipine Besylate (Norvasc) 10 mg DAILY PO Last administered on 03/21/19at 08:54; Start 03/20/19 at 16:00 Aspirin (Ravi Aspirin) 325 mg DAILY PO Last administered on 03/21/19 08:53; Start 03/21/19 at 09:00 Aspirin (Ecotrin) 81 mg DAILYWBKFT PO ; Start 03/20/19 at 16:00; Stop 03/20/19 at 16:27; Status DC Atorvastatin Calcium (Lipitor) 10 mg QHS PO Last administered on 03/20/19at 21:40; Start 03/20/19 at 21:00 Calcium Carbonate/ Glycine (Tums) 500 mg BID PO Last administered on 03/21/19at 08:54; Start 03/20/19 at 21:00 Carbamazepine (TEGretol) 200 mg TID PO Last administered on 03/21/19at 08:54; Start 03/20/19 at 16:30 Citalopram Hydrobromide (CeleXA) 40 mg DAILY PO Last administered on 03/21/19 08:54; Start 03/21/19 at 09:00 Divalproex Sodium (Depakote Er) 750 mg QHS PO ; Start 03/21/19 at 21:00 Fluticasone Propionate (Flonase) 1 spray BID NS Last administered on 03/21/19at 08:53; Start 03/20/19 at 21:00 Hydralazine HCl (Apresoline Inj) 10 mg 1X ONCE IVP Last administered on 03/20/19at 14:28; Start 03/20/19 at 14:30; Stop 03/20/19 at 14:31; Status DC Hydralazine HCl (Apresoline Inj) 10 mg PRN Q4HRS PRN IVP ELEVATED BP, SEE COMMENTS; Start 03/20/19 at 14:30 Hydralazine HCl (Apresoline Inj) 10 mg PRN Q4HRS PRN IVP ELEVATED BP, SEE CO MMENTS; Start 03/20/19 at 15:15 Multivitamins (Thera M Plus) 1 tab DAILY PO Last administered on 03/21/19 08:55; Start 03/21/19 at 09:00 Ondansetron HCl (Zofran) 4 mg PRN Q8HRS PRN IV NAUSEA/VOMITING; Start 03/20/19 at 14:30; Stop 03/21/19 at 14:29 Phenytoin Sodium (Dilantin) 100 mg DAILY PO Last administered on 03/21/19 08:54; Start 03/21/19 at 09:00 Phenytoin Sodium (Dilantin) 200 mg QHS PO Last administered on 03/20/19 21:39; Start 03/20/19 at 21:00 Prednisone (Prednisone) 40 mg DAILY PO Last administered on 03/21/19 08:54; Start 03/21/19 at 09:00 Prednisone (Prednisone) 50 mg 1X ONCE PO Last administered on 03/20/19 18:21; Start 03/20/19 at 16:30; Stop 03/20/19 at 16:33; Status DC Senna/Docusate Sodium (Senna Plus) 1 tab BID PO Last administered on 03/21/19 08:54; Start 03/20/19 at 21:00 Sodium Chloride 1,000 ml @ 1,000 mls/hr 1X ONCE IV Last administered on 03/20/19 13:36; Start 03/20/19 at 12:30; Stop 03/20/19 at 13:29; Status DC Tiagabine HCl (Gabitril) 12 mg BID PO Last administered on 03/21/19 08:53; Start 03/20/19 at 21:00 Trazodone HCl (Desyrel) 100 mg HS PO Last administered on 03/20/19 21:40; Start 03/20/19 at 21:00 Vitals/I & O Vital Sign - Last 24 Hours 03/20/19 03/20/19 03/20/19 03/20/19 12:11 13:36 14:06 14:22 Temp 98.3 98.3 Pulse 50 46 44 44 Resp 16 19 20 B/P (MAP) 180/89 (119) Pulse Ox 100 95 96 97 O2 Delivery Room Air 03/20/19 03/20/19 03/20/19 03/20/19 14:28 14:29 15:30 18:22 Temp 99.1 99.1 Pulse 43 42 55 47 Resp 20 20 B/P (MAP) 201/89 184/79 (114) 170/87 Pulse Ox 95 95 O2 Delivery Room Air 03/20/19 03/20/19 03/20/19 03/20/19 18:22 19:22 19:35 23:30 Temp 98.0 98.3 98.0 98.3 Pulse 91 52 Resp 18 18 18 18 B/P (MAP) 150/60 (90) 181/77 (111) Pulse Ox 95 97 O2 Delivery Room Air Room Air Room Air Room Air 03/21/19 03/21/19 03/21/19 03/21/19 00:28 00:54 01:28 03:40 Temp 98.6 98.6 Pulse 47 49 Resp 20 18 18 B/P (MAP) 138/75 (96) 143/75 (97) Pulse Ox 95 93 93 O2 Delivery Room Air Room Air Room Air 03/21/19 03/21/19 03/21/19 03/21/19 06:37 07:53 08:50 08:54 Temp 98.6 98.6 Pulse 62 49 Resp 20 16 16 B/P (MAP) 180/93 (122) 143/75 Pulse Ox 93 94 O2 Delivery Room Air Room Air Intake and Output 03/20/19 03/20/19 03/21/19 15:00 23:00 07:00 Intake Total 220 ml 450 ml Output Total 800 ml 225 ml Balance -580 ml 225 ml XIOMARA POZO MD Mar 21, 2019 09:56
--- NOTE | 2019-03-21 11:19 | NUR ---
SW following pt for dc planning. Chart reviewed and discussed with RN. Pt is a resident at [facility] home: [phone], alternative numbers, [place]: [phone] or [place]: [phone]. ALEJANDRA will continue to follow. Addendum: 03/21/19 at 1121 by JULIAN ROBERTS Pt is a readmit <30days.
--- NOTE | 2019-03-21 11:39 | PDOC ---
ZEUS FERNANDEZ [employer] 03/21/19 1139: CARDIO Progress Notes Date and Time Date of Service 03/21/2019 Time of Evaluation 1130 Subjective Subjective: No Chest Pain, No shortness of breath, No Palpitations, Other (still having right sided ANDERSON) Vitals Vitals Vital Signs Date Time Temp Pulse Resp B/P (MAP) Pulse Ox O2 Delivery O2 Flow Rate FiO2 03/21/19 08:54 49 143/75 03/21/19 08:50 98.6 16 94 Room Air 98.6 Weight Weight [ ] Input and Output Intake and Output Intake and Output 03/21/19 06:59 Intake Total 670 ml Output Total 1025 ml Balance -355 ml Intake Oral 670 ml Output Urine Total 1025 ml Laboratory Labs Laboratory Tests Test 03/20/19 13:50 03/20/19 16:15 03/21/19 04:30 White Blood Count 8.6 x10^3/uL (4.0-11.0) 7.7 x10^3/uL (4.0-11.0) Red Blood Count 4.63 x10^6/uL (4.30-5.70) 4.62 x10^6/uL (4.30-5.70) Hemoglobin 14.5 g/dL (13.0-17.5) 14.4 g/dL (13.0-17.5) Hematocrit 42.4 % (39.0-53.0) 42.9 % (39.0-53.0) Mean Corpuscular Volume 92 fL (79-100) 93 fL (79-100) Mean Corpuscular Hemoglobin 31 pg (25-35) 31 pg (25-35) Mean Corpuscular Hemoglobin Concent 34 g/dL (31-37) 34 g/dL (31-37) Red Cell Distribution Width 13.7 % (11.5-14.5) 13.5 % (11.5-14.5) Platelet Count 226 x10^3/uL (140-400) 238 x10^3/uL (140-400) Neutrophils (%) (Auto) 63 % (31-73) 76 % (31-73) Lymphocytes (%) (Auto) 24 % (24-48) 15 % (24-48) Monocytes (%) (Auto) 12 % (0-9) 9 % (0-9) Eosinophils (%) (Auto) 1 % (0-3) 0 % (0-3) Basophils (%) (Auto) 1 % (0-3) 0 % (0-3) Neutrophils # (Auto) 5.4 x10^3/uL (1.8-7.7) 5.9 x10^3/uL (1.8-7.7) Lymphocytes # (Auto) 2.0 x10^3/uL (1.0-4.8) 1.1 x10^3/uL (1.0-4.8) Monocytes # (Auto) 1.0 x10^3/uL (0.0-1.1) 0.7 x10^3/uL (0.0-1.1) Eosinophils # (Auto) 0.1 x10^3/uL (0.0-0.7) 0.0 x10^3/uL (0.0-0.7) Basophils # (Auto) 0.1 x10^3/uL (0.0-0.2) 0.0 x10^3/uL (0.0-0.2) Sodium Level 146 mmol/L (136-145) 140 mmol/L (136-145) Potassium Level 3.7 mmol/L (3.5-5.1) 3.7 mmol/L (3.5-5.1) Chloride Level 106 mmol/L (98-107) 102 mmol/L (98-107) Carbon Dioxide Level 32 mmol/L (21-32) 29 mmol/L (21-32) Anion Gap 8 (6-14) 9 (6-14) Blood Urea Nitrogen 23 mg/dL (8-26) 20 mg/dL (8-26) Creatinine 0.9 mg/dL (0.7-1.3) 0.8 mg/dL (0.7-1.3) Estimated GFR (Cockcroft-Gault) 87.3 100.0 BUN/Creatinine Ratio 26 (6-20) 25 (6-20) Glucose Level 105 mg/dL (70-99) 118 mg/dL (70-99) Calcium Level 9.0 mg/dL (8.5-10.1) 8.6 mg/dL (8.5-10.1) Magnesium Level 2.3 mg/dL (1.8-2.4) Total Bilirubin 0.3 mg/dL (0.2-1.0) 0.4 mg/dL (0.2-1.0) Aspartate Amino Transf (AST/SGOT) 17 U/L (15-37) 20 U/L (15-37) Alanine Aminotransferase (ALT/SGPT) 38 U/L (16-63) 39 U/L (16-63) Alkaline Phosphatase 68 U/L (46-116) 67 U/L (46-116) Creatine Kinase 187 U/L (39-308) Creatine Kinase MB (Mass) < 0.5 ng/mL (0.0-3.6) Creatine Kinase MB Relative Index % (0-4) Troponin I Quantitative < 0.017 ng/mL (0.000-0.055) KG-Mts-W-Type Natriuretic Peptide 208 pg/mL (0-124) Total Protein 7.3 g/dL (6.4-8.2) 7.5 g/dL (6.4-8.2) Albumin 3.5 g/dL (3.4-5.0) 3.3 g/dL (3.4-5.0) Albumin/Globulin Ratio 0.9 (1.0-1.7) 0.8 (1.0-1.7) Thyroid Stimulating Hormone (TSH) 1.717 uIU/mL (0.358-3.74) Urine Collection Type Unknown Urine Color Yellow Urine Clarity Clear Urine pH 6.5 Urine Specific [place] 1.025 Urine Protein Negative mg/dL (NEG-TRACE) Urine Glucose (UA) Negative mg/dL (NEG) Urine Ketones (Stick) Trace mg/dL (NEG) Urine Blood Negative (NEG) Urine Nitrite Negative (NEG) Urine Bilirubin Negative (NEG) Urine Urobilinogen Dipstick 1.0 mg/dL (0.2 mg/dL) Urine Leukocyte Esterase Negative (NEG) Urine RBC Occ /HPF (0-2) Urine WBC 0 /HPF (0-4) Urine Bacteria 0 /HPF (0-FEW) Urine Mucus Mod /LPF Urine Opiates Screen Neg (NEG) Urine Methadone Screen Neg (NEG) Urine Barbiturates Neg (NEG) Urine Phencyclidine Screen Neg (NEG) Urine Amphetamine/Methamphetamine Neg (NEG) Urine Benzodiazepines Screen Neg (NEG) Urine Cocaine Screen Neg (NEG) Urine Cannabinoids Screen Neg (NEG) Urine Ethyl Alcohol Neg (NEG) Physical Exam HEENT: Neck Supple W Full Motion Chest: Symmetric LUNGS: Clear to Auscultation Heart: S1S2, RRR (SR) Abdomen: Soft N/T Extremities: No Edema, No Calf Tenderness Neurology: alert, oriented, follow commands Assessment Assessment 1. Syncope: potentially due to symptomatic SB. noted with junctional rhythms overnight in the 30s, no pauses 2. Right unilateral ANDERSON with right facial shingles 3. Accelerated HTN: somewhat better. fluctuations could also be from pain. 4. DLP 5. Hx of cerebral palsy 6. Hx of CVA: noted per CT. carotid doppler LCIA unremarkable but refused to have right side done. 7. Obesity Recommendations 1. Outpt event monitor will need to be shipped back to the [employer] only wore it for 1 wk instead of 2 and was not wearing it when he passed out. Will review when available 2. No AV george blocking agents. Continue Norvasc. Hydralazine IV PRN. Monitor rhythm 3. Antiviral per PCP 4. Orthostatic readings Discussed with RN. Recheck BP manually when high. 5. Start on statin and ASA. NOEMY CALL MD 03/21/19 4061: CARDIO Progress Notes Assessment Assessment Patient seen and examined. Agree with WIRE DRAWER's assessment and plan. BP better controlled Event monitor results pending Tele showed sinus juan pablo without any pauses Continue antiviral therapy per ZEUS FOREMAN APRN Mar 21, 2019 11:39 NOEMY CALL MD Mar 21, 2019 22:08
[2019-03-21 15:00] VITALS: BP 175/85
[2019-03-21 19:54] VITALS: BP 169/79
[2019-03-21] MEDS: ATORVASTATIN CALCIUM 10 MG TABLET. PO SCH (22:11)
[2019-03-21] MEDS: traZODone 100 MG TABLET. PO SCH (22:12)
[2019-03-21] MEDS: DIVALPROEX EXTENDED RELEASE 250 MG TAB.ER.24H. PO SCH (22:13)
[2019-03-21] MEDS: hydrALAZINE 20 MG/ML VIAL. IVP PRN (22:14)
[2019-03-21 23:54] VITALS: BP 187/88
[2019-03-22] MEDS: hydrALAZINE 20 MG/ML VIAL. IVP PRN ×2 (02:39→18:38)
[2019-03-22 03:27] VITALS: BP 173/74
[2019-03-22] MEDS: HYDROcodone/APAP 10/325 1 TAB TABLET PO PRN ×2 (05:07→15:42)
[2019-03-22] MEDS: ACYCLOVIR 200 MG CAPSULE. PO SCH ×5 (06:01→21:02)
[2019-03-22 07:15] VITALS: BP 157/78
--- NOTE | 2019-03-22 10:43 | PDOC ---
PROGRESS NOTES Subjective Subjective feels better today Objective Objective Vital Signs Date Time Temp Pulse Resp B/P (MAP) Pulse Ox O2 Delivery O2 Flow Rate FiO2 03/22/19 07:15 98.4 104 20 157/78 (104) 95 Room Air 98.4 Intake and Output 03/22/19 07:00 Intake Total 200 ml Output Total 450 ml Balance -250 ml Intake Oral 200 ml Output Urine Total 450 ml # Voids 1 Physical Exam Abdomen: Soft, No tenderness Heart: Regular rate (SR/SB), Normal S1, Normal S2, No murmurs Extremities: No cyanosis, No edema General: Alert, Oriented X3, Cooperative, No acute distress HEENT: Atraumatic, Mucous membr. moist/pink Lungs: Clear to auscultation, Normal air movement MUSCULOSKELETAL: Osteoarthritic changes both hands Neuro: Normal speech, Sensation intact Psych/Mental Status: Mental status NL, Mood NL Skin: Other (right forehead unilateral cluster lesion with erythema and tenderness) Diagnosis Problem List Problems Medical Problems: (1) Accelerated hypertension Status: Acute (2) Cerebral palsy Status: Chronic (3) Headache Status: Acute (4) Herpes zoster Status: Acute (5) Post-seizure headache Status: Acute (6) Refractory seizure Status: Chronic (7) Shingles Status: Acute (8) Syncope Status: Acute Assessment Assessment Problems Medical Problems: (1) Accelerated hypertension Status: Acute (2) Cerebral palsy Status: Chronic (3) Headache Status: Acute (4) Herpes zoster Status: Acute (5) Post-seizure headache Status: Acute (6) Refractory seizure Status: Chronic (7) Shingles Status: Acute (8) Syncope Status: Acute FINAL IMPRESSION: 1. Herpes zoster trigeminal nerve rt side. 2. 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 3. Seizure headache. 4. History of refractory seizures, on 3 medications. 4. History of cerebral palsy. PLAN: d/c to nursing home sunday seen eye doctor no corneal involvement acyclovir 800 po q 4 hours. lortab for pain. labs ok. prednisone added to prevent neuralgia At this time, was admitted to the hospital. IV acyclovir was given and also add prednisone to prevent postherpetic neuralgia and Ophthalmology was consulted. Pain control with Lortab. Continue seizure medications. See how he improves in the next 24-48 hours. Plan Plan of Care Problems Medical Problems: (1) Accelerated hypertension Status: Acute (2) Cerebral palsy Status: Chronic (3) Headache Status: Acute (4) Herpes zoster Status: Acute (5) Post-seizure headache Status: Acute (6) Refractory seizure Status: Chronic (7) Shingles Status: Acute (8) Syncope Status: Acute Comment Review of Relevant I have reviewed the following items christo (where applicable) has been applied. Medications Current Medications Divalproex Sodium (Depakote Er) 750 mg QHS PO Last administered on 03/21/19at 22:13; Start 03/21/19 at 21:00 Vitals/I & O Vital Sign - Last 24 Hours 03/21/19 03/21/19 03/21/19 03/21/19 15:00 15:34 16:34 19:54 Temp 98.1 98.2 98.1 98.2 Pulse 52 46 Resp 20 16 20 18 B/P (MAP) 175/85 (115) 169/79 (109) Pulse Ox 96 95 O2 Delivery Room Air Room Air Room Air 03/21/19 03/21/19 03/21/19 03/21/19 20:00 22:14 22:15 23:15 Pulse 46 B/P (MAP) 169/79 Pulse Ox 95 92 O2 Delivery Room Air Room Air Room Air 03/21/19 03/22/19 03/22/19 03/22/19 23:54 02:39 03:27 05:07 Temp 98.3 98.5 98.3 98.5 Pulse 44 59 59 Resp 20 B/P (MAP) 187/88 (121) 173/74 173/74 (107) Pulse Ox 92 98 98 O2 Delivery Room Air Room Air 03/22/19 03/22/19 06:07 07:15 Temp 98.4 98.4 Pulse 104 Resp 20 B/P (MAP) 157/78 (104) Pulse Ox 98 95 O2 Delivery Room Air Room Air Intake and Output 03/21/19 03/21/19 03/22/19 15:00 23:00 07:00 Intake Total 50 ml 150 ml Output Total 200 ml 150 ml 100 ml Balance -200 ml -100 ml 50 ml XIOMARA POZO MD Mar 22, 2019 10:43
[2019-03-22 10:50] VITALS: BP 155/75
[2019-03-22] MEDS: PHENYTOIN SODIUM EXTENDED 100 MG CAPSULE PO SCH ×2 (10:54→21:02)
[2019-03-22] MEDS: TIAGABINE 4 MG PO SCH ×2 (10:54→21:00)
[2019-03-22] MEDS: predniSONE 20 MG TABLET PO SCH (10:54)
[2019-03-22] MEDS: CALCIUM CARBONATE 500 MG TAB.CHEW PO SCH ×2 (10:54→21:02)
[2019-03-22] MEDS: ASPIRIN 325 MG TABLET PO SCH (10:54)
[2019-03-22] MEDS: CITALOPRAM 20 MG TABLET. PO SCH (10:55)
[2019-03-22] MEDS: FLUTICASONE 50MCG/NASAL SPRAY 16GM BOTTLE. NS SCH ×2 (10:55→20:59)
[2019-03-22] MEDS: MULTIVITAMIN with MINERAL TABLET. PO SCH (10:55)
[2019-03-22] MEDS: SENNOSIDES/DOCUSATE 8.6/50MG TABLET. PO SCH ×3 (10:55→21:04)
[2019-03-22] MEDS: carBAMazepine 200 MG TABLET PO SCH ×3 (10:55→21:02)
[2019-03-22] MEDS: amLODIPine BESYLATE 10 MG TABLET PO SCH (10:55)
[2019-03-22 15:20] VITALS: BP 175/82
[2019-03-22 19:43] VITALS: BP 140/64
[2019-03-22] MEDS: DIVALPROEX EXTENDED RELEASE 250 MG TAB.ER.24H. PO SCH (21:01)
[2019-03-22] MEDS: ATORVASTATIN CALCIUM 10 MG TABLET. PO SCH (21:02)
[2019-03-22] MEDS: traZODone 100 MG TABLET. PO SCH (21:02)
[2019-03-22 23:00] VITALS: BP 134/64
[2019-03-23] VITALS (7 sets, daily range): BP systolic 144–196; BP diastolic 72–93
[2019-03-23] MEDS: HYDROcodone/APAP 10/325 1 TAB TABLET PO PRN ×2 (01:50→12:23)
[2019-03-23] MEDS: ACYCLOVIR 200 MG CAPSULE. PO SCH ×5 (05:31→21:49)
[2019-03-23] MEDS: SENNOSIDES/DOCUSATE 8.6/50MG TABLET. PO SCH ×2 (10:25→21:47)
[2019-03-23] MEDS: TIAGABINE 4 MG PO SCH ×2 (10:25→21:47)
[2019-03-23] MEDS: amLODIPine BESYLATE 10 MG TABLET PO SCH (10:25)
[2019-03-23] MEDS: ASPIRIN 325 MG TABLET PO SCH (10:25)
[2019-03-23] MEDS: CITALOPRAM 20 MG TABLET. PO SCH (10:26)
[2019-03-23] MEDS: MULTIVITAMIN with MINERAL TABLET. PO SCH (10:26)
[2019-03-23] MEDS: CALCIUM CARBONATE 500 MG TAB.CHEW PO SCH ×2 (10:26→21:47)
[2019-03-23] MEDS: predniSONE 20 MG TABLET PO SCH (10:26)
[2019-03-23] MEDS: carBAMazepine 200 MG TABLET PO SCH ×3 (10:26→21:47)
[2019-03-23] MEDS: FLUTICASONE 50MCG/NASAL SPRAY 16GM BOTTLE. NS SCH ×2 (10:27→21:49)
[2019-03-23] MEDS: PHENYTOIN SODIUM EXTENDED 100 MG CAPSULE PO SCH ×2 (10:27→21:48)
--- NOTE | 2019-03-23 10:28 | PDOC ---
PROGRESS NOTES Subjective Subjective feels better today Objective Objective Vital Signs Date Time Temp Pulse Resp B/P (MAP) Pulse Ox O2 Delivery O2 Flow Rate FiO2 03/23/19 07:00 98.6 60 16 144/80 (101) 96 Room Air 98.6 Intake and Output 03/23/19 07:00 Intake Total 740 ml Output Total 500 ml Balance 240 ml Intake Oral 740 ml Output Urine Total 500 ml # Voids 2 Physical Exam Abdomen: Soft, No tenderness Heart: Regular rate (SR/SB), Normal S1, Normal S2, No murmurs Extremities: No cyanosis, No edema General: Alert, Oriented X3, Cooperative, No acute distress HEENT: Atraumatic, Mucous membr. moist/pink Lungs: Clear to auscultation, Normal air movement MUSCULOSKELETAL: Osteoarthritic changes both hands Neuro: Normal speech, Sensation intact Psych/Mental Status: Mental status NL, Mood NL Skin: Other (right forehead unilateral cluster lesion with erythema and tenderness) Diagnosis Problem List Problems Medical Problems: (1) Accelerated hypertension Status: Acute (2) Cerebral palsy Status: Chronic (3) Headache Status: Acute (4) Herpes zoster Status: Acute (5) Post-seizure headache Status: Acute (6) Refractory seizure Status: Chronic (7) Shingles Status: Acute (8) Syncope Status: Acute Assessment Assessment Problems Medical Problems: (1) Accelerated hypertension Status: Acute (2) Cerebral palsy Status: Chronic (3) Headache Status: Acute (4) Herpes zoster Status: Acute (5) Post-seizure headache Status: Acute (6) Refractory seizure Status: Chronic (7) Shingles Status: Acute (8) Syncope Status: Acute FINAL IMPRESSION: 1. Herpes zoster trigeminal nerve rt side. 2. 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 3. Seizure headache. 4. History of refractory seizures, on 3 medications. 4. History of cerebral palsy. PLAN: no new problems. d/c to snf sunday seen eye doctor no corneal involvement acyclovir 800 po q 4 hours. lortab for pain. labs ok. prednisone added to prevent neuralgia At this time, was admitted to the hospital. IV acyclovir was given and also add prednisone to prevent postherpetic neuralgia and Ophthalmology was consulted. Pain control with Lortab. Continue seizure medications. See how he improves in the next 24-48 hours. Plan Plan of Care Problems Medical Problems: (1) Accelerated hypertension Status: Acute (2) Cerebral palsy Status: Chronic (3) Headache Status: Acute (4) Herpes zoster Status: Acute (5) Post-seizure headache Status: Acute (6) Refractory seizure Status: Chronic (7) Shingles Status: Acute (8) Syncope Status: Acute Comment Review of Relevant I have reviewed the following items christo (where applicable) has been applied. Vitals/I & O Vital Sign - Last 24 Hours 03/22/19 03/22/19 03/22/19 03/22/19 10:50 10:55 15:20 15:42 Temp 98.3 98.3 98.3 98.3 Pulse 95 95 99 Resp 20 18 B/P (MAP) 155/75 (101) 155/75 175/82 (113) Pulse Ox 95 94 94 O2 Delivery Room Air Room Air Room Air 03/22/19 03/22/19 03/22/19 03/22/19 17:53 18:38 19:43 20:00 Temp 98.2 98.2 Pulse 99 48 Resp 20 B/P (MAP) 175/82 140/64 (89) Pulse Ox 94 96 O2 Delivery Room Air Room Air Room Air 03/22/19 03/23/19 03/23/19 23:00 03:20 07:00 Temp 98.1 98.1 98.6 98.1 98.1 98.6 Pulse 50 45 60 Resp 16 20 16 B/P (MAP) 134/64 (87) 156/72 (100) 144/80 (101) Pulse Ox 95 92 96 O2 Delivery Room Air Room Air Room Air Intake and Output 03/22/19 03/22/19 03/23/19 15:00 23:00 07:00 Intake Total 100 ml 440 ml 200 ml Output Total 500 ml Balance -400 ml 440 ml 200 ml XIOMARA POZO MD Mar 23, 2019 10:28
[2019-03-23] MEDS: traZODone 100 MG TABLET. PO SCH (21:47)
[2019-03-23] MEDS: DIVALPROEX EXTENDED RELEASE 250 MG TAB.ER.24H. PO SCH (21:48)
[2019-03-23] MEDS: ATORVASTATIN CALCIUM 10 MG TABLET. PO SCH (21:49)
[2019-03-24 03:00] VITALS: BP 160/76
[2019-03-24] MEDS: ACYCLOVIR 200 MG CAPSULE. PO SCH ×2 (06:05→10:38)
[2019-03-24 07:00] VITALS: BP 159/82
[2019-03-24] MEDS: FLUTICASONE 50MCG/NASAL SPRAY 16GM BOTTLE. NS SCH (08:39)
[2019-03-24] MEDS: MULTIVITAMIN with MINERAL TABLET. PO SCH (08:40)
[2019-03-24] MEDS: carBAMazepine 200 MG TABLET PO SCH (08:40)
[2019-03-24] MEDS: SENNOSIDES/DOCUSATE 8.6/50MG TABLET. PO SCH (08:40)
[2019-03-24] MEDS: CALCIUM CARBONATE 500 MG TAB.CHEW PO SCH (08:40)
[2019-03-24] MEDS: predniSONE 20 MG TABLET PO SCH (08:40)
[2019-03-24] MEDS: PHENYTOIN SODIUM EXTENDED 100 MG CAPSULE PO SCH (08:40)
[2019-03-24] MEDS: ASPIRIN 325 MG TABLET PO SCH (08:40)
[2019-03-24] MEDS: CITALOPRAM 20 MG TABLET. PO SCH (08:40)
[2019-03-24] MEDS: amLODIPine BESYLATE 10 MG TABLET PO SCH (08:41)
[2019-03-24] MEDS: HYDROcodone/APAP 10/325 1 TAB TABLET PO PRN (08:42)
--- NOTE | 2019-03-24 09:19 | PDOC ---
PROGRESS NOTES Subjective Subjective feels better today Objective Objective Vital Signs Date Time Temp Pulse Resp B/P (MAP) Pulse Ox O2 Delivery O2 Flow Rate FiO2 03/24/19 08:42 Room Air 03/24/19 08:41 57 159/82 03/24/19 07:00 97.9 18 91 97.9 Intake and Output 03/24/19 07:00 Intake Total 360 ml Output Total 500 ml Balance -140 ml Intake Oral 360 ml Output Urine Total 500 ml # Voids 2 # Bowel Movements 1 Physical Exam Abdomen: Soft, No tenderness Heart: Regular rate (SR/SB), Normal S1, Normal S2, No murmurs Extremities: No cyanosis, No edema General: Alert, Oriented X3, Cooperative, No acute distress HEENT: Atraumatic, Mucous membr. moist/pink Lungs: Clear to auscultation, Normal air movement MUSCULOSKELETAL: Osteoarthritic changes both hands Neuro: Normal speech, Sensation intact Psych/Mental Status: Mental status NL, Mood NL Skin: Other (right forehead unilateral cluster lesion with erythema and tenderness) Diagnosis Problem List Problems Medical Problems: (1) Accelerated hypertension Status: Acute (2) Acute herpes zoster neuropathy Status: Chronic (3) Cerebral palsy Status: Chronic (4) Cerebral palsy Status: Chronic (5) Headache Status: Acute (6) Herpes zoster Status: Acute (7) Post-seizure headache Status: Acute (8) Post-seizure headache Status: Chronic (9) Refractory seizure Status: Chronic (10) Shingles Status: Acute (11) Syncope Status: Acute Assessment Assessment Problems Medical Problems: (1) Accelerated hypertension Status: Acute (2) Cerebral palsy Status: Chronic (3) Headache Status: Acute (4) Herpes zoster Status: Acute (5) Post-seizure headache Status: Acute (6) Refractory seizure Status: Chronic (7) Shingles Status: Acute (8) Syncope Status: Acute FINAL IMPRESSION: 1. Herpes zoster trigeminal nerve rt side. 2. 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 3. Seizure headache. 4. History of refractory seizures, on 3 medications. 4. History of cerebral palsy. PLAN: no new problems. d/c to [facility] today seen eye doctor no corneal involvement acyclovir 800 po q 4 hours. for 3 more days lortab for pain. labs ok. prednisone added to prevent neuralgia Plan Plan of Care Problems Medical Problems: (1) Accelerated hypertension Status: Acute (2) Acute herpes zoster neuropathy Status: Chronic (3) Cerebral palsy Status: Chronic (4) Cerebral palsy Status: Chronic (5) Headache Status: Acute (6) Herpes zoster Status: Acute (7) Post-seizure headache Status: Acute (8) Post-seizure headache Status: Chronic (9) Refractory seizure Status: Chronic (10) Shingles Status: Acute (11) Syncope Status: Acute Comment Review of Relevant I have reviewed the following items christo (where applicable) has been applied. Vitals/I & O Vital Sign - Last 24 Hours 03/23/19 03/23/19 03/23/19 03/23/19 10:25 11:00 12:23 12:31 Temp 98.5 98.5 Pulse 60 60 67 Resp 18 B/P (MAP) 144/80 196/93 (127) 163/87 (112) Pulse Ox 96 96 O2 Delivery Room Air Room Air Room Air 03/23/19 03/23/19 03/23/19 03/23/19 14:00 15:00 19:00 20:15 Temp 98.5 97.9 98.5 97.9 Pulse 61 52 Resp 18 18 B/P (MAP) 157/78 (104) 174/84 (114) Pulse Ox 96 96 90 O2 Delivery Room Air Room Air Room Air Room Air 03/23/19 03/24/19 03/24/19 03/24/19 23:00 03:00 07:00 08:41 Temp 97.7 98.0 97.9 97.7 98.0 97.9 Pulse 49 47 52 57 Resp 18 18 18 B/P (MAP) 151/85 (107) 160/76 (104) 159/82 (107) 159/82 Pulse Ox 96 91 91 O2 Delivery Room Air Room Air Room Air 03/24/19 08:42 O2 Delivery Room Air Intake and Output 03/23/19 03/23/19 03/24/19 15:00 23:00 07:00 Intake Total 120 ml 240 ml Output Total 100 ml 400 ml Balance -100 ml 120 ml -160 ml XIOMARA POZO MD Mar 24, 2019 09:19
[2019-03-24] MEDS ORDERED: ATOR10TA60 PO (09:27)
[2019-03-24] MEDS ORDERED: AMLO5TAB10 PO (09:27)
[2019-03-24] MEDS ORDERED: PRED20TA PO (09:27)
[2019-03-24] MEDS ORDERED: ACYC800T PO (09:27)
[2019-03-24] MEDS ORDERED: HYDR-2769 PO (09:27)
[2019-03-24] MEDS: TIAGABINE 4 MG PO SCH (10:37)
[2019-03-24 11:00] VITALS: BP 164/87
--- NOTE | 2019-03-24 11:03 | NUR ---
SW following for discharge planning. Discussed with RN, discharge order in chart. SW contacted Loulou at [facility] ([phone]). They will collect pt at around 1400. RN notified. SW will continue to follow.
--- NOTE | 2019-03-24 14:54 | NUR ---
Pt. discharged to home with Rx, verbalized understanding of discharge instructions. Crystal at detention and pt's sister informed of d/c and instructions.
--- NOTE | 2019-03-24 21:30 | PDOC ---
Provider Note Provider Note Discharge summary dictated.#[id number]. XIOMARA POZO MD Mar 24, 2019 21:30
--- NOTE | 2019-03-25 04:11 | DS ---
DATE OF DISCHARGE: 03/24/2019 REASON FOR ADMISSION TO THE HOSPITAL: Syncopal episode, severe headaches. CONSULTATIONS: 1. Cardiology, Dr. Pak. 2. Dr. Cisneros, Ophthalmology. PROCEDURES DONE: CT head and carotid Doppler. HOSPITAL COURSE: The patient is a 58-year-old male impaired, mentally challenged, lives in a [place] [facility] and has refractory seizures and he had a severe headache and with questionable syncopal episode, was sent to the Emergency Room and the CT head was negative. The patient had developed skin lesions on the forehead and diagnosed to have herpes zoster in the trigeminal nerve ophthalmic branch. The patient was started on acyclovir with prednisone and also Ophthalmology was consulted and there is no involvement of the cornea. The patient was also seen by Cardiology, had a carotid Doppler, was negative. The patient had an echocardiogram on 03/05/2019 which shows normal left ventricular function 50-60%, IMP : 1.headache and syncopal episode from the severe herpes zoster of the ophthalmic branch of the 2.trigeminal nerve. No involvement of the cornea. 3.Refractory seizures and history of cerebral palsy and bipolar and seizures. 4.HTN 5.Hyperlipidemia DISPOSITION:: see [facility] for additional medication. Total 7 days of acyclovir with 5 days of prednisone, Lortab for severe headaches. The patient was also started on hypertension and cholesterol medications while he was in the hospital, amlodipine and atorvastatin. XIOMARA POZO MD DR: JESUS/stephen JOB#: [id number] / [id number] SANTO Santacruz [facility]OSPITALAletha
== END 2019-03-24 14:47 | disposition home or self-care (01) | DRG 125 ==
LOC: ER 11:57 → 6 SOUTH 13:32 → 4 NORTH 03-23 20:10
PROVIDERS: ADMIT Internal Medicine; ATTEND Internal Medicine
DX: B02.30 Zoster ocular disease, unspecified (principal); B02.29 Other postherpetic nervous system involvement; G40.919 Epilepsy, unspecified, intractable, without status epilepticus; E66.9 Obesity, unspecified; E78.5 Hyperlipidemia, unspecified; F31.9 Bipolar disorder, unspecified; M19.90 Unspecified osteoarthritis, unspecified site; G80.8 Other cerebral palsy; G93.89 Other specified disorders of brain; I10 Essential (primary) hypertension; L98.9 Disorder of the skin and subcutaneous tissue, unspecified; Z86.73 Personal history of transient ischemic attack (TIA), and cerebral infarction without residual deficits; Z68.32 Body mass index [BMI] 32.0-32.9, adult
CPT/HCPCS: 36415; 70450; 71045; 80053; 80307; 81001; 82553; 83735; 83880; 84443; 84484; 85025; 93005; 93880; 96361; 96374; J0360; J7030; J7512; 97530; 99285-25; G0378

== ENCOUNTER → 2020-04-06 | Outpatient (CLI) | payer MEDICARE, MEDICAID ==
[2019-06-27 15:00] VITALS: BP 119/70
[~2020-04-06] MED LIST changes: +ACYC800T PO; +AMLO-186 PO; +ATOR10TA60 PO; +CHOL10003 PO; +DIVA500T4 PO; +ENOX40DI SQ; +HYDR-2769 PO; +IPRA3AMP29 NEB; +LISI10TA2 PO; +MECL12.573 PO; +MULT-445 PO; -MULT1TAB52 PO; +PIPE3.377 IV; +PRED20TA PO; -RISP2TAB3 PO; +RISP2TAB78 PO; -RISP3TAB3 PO; +RISP3TAB56 PO; +TRAZ-123 PO; -TRAZ-86 PO; +ZIPR40CA2 PO; +ZIPR60CA3 PO
--- NOTE | 2020-04-06 14:31 | CARD ---
MR#: [id number] Date of Study: 04/06/2020 Ordering Physician: NOEMY PAK, Referring Physician: NOEMY PAK, Tech: Cindy Walter LOLITA APPROVED REPORT EXAM: Two-dimensional and M-mode echocardiogram with Doppler and color Doppler. Other Information Quality : GoodHR: 86bpm Rhythm : NSR INDICATION Syncope. 2D DIMENSIONS RVDd2.9 (2.9-3.5cm)IVSd1.3 (0.7-1.1cm) Aortic Root(2D)3.4 (2.0-3.7cm)LVDd3.6 (3.9-5.9cm) LVOT Diameter2.0 (1.8-2.4cm)PWd1.4 (0.7-1.1cm) LVDs2.7 (2.5-4.0cm)FS (%) 25.6 % SV27.3 mlLVEF(%)51.4 (>50%) Aortic Valve AoV Peak Jason.145.3cm/Cricket Peak GR.8.4mmHg LVOT Peak Jason.119.3cm/sAVA (VMAX)2.59cm2 Mitral Valve MV E Gdylcngk29.7cm/sMV DECEL [id number] MV A Lfnzttdj440.2cm/sE/A Ratio0.6 MV A Qinhebwg813fq Pulmonary Valve PV Peak Kmwazzfn58.8cm/s Tricuspid Valve TR P. Efrvoqma834ia/sRAP [id number] TR Peak Gr.11wfItHNKA68hfFp Pulmonary Vein S1 Wilosaso39.5cm/sD2 Thmcazfv55.6cm/s PVa [id number] LEFT VENTRICLE The left ventricle is normal size. There is mild concentric left ventricular hypertrophy. Left ventri howard systolic functionsystolic function is normal. The Ejection Fraction is 55-60%. There is normal LV segmental wall motion. Transmitral Doppler flow pattern is Grade I-abnormal relaxation pattern. RIGHT VENTRICLE The right ventricle is normal size. The right ventricular systolic function is normal. ATRIA The left atrium size is normal. The right atrium size is normal. AORTIC VALVE The aortic valve is normal in structure and function. Trace aortic regurgitation. There is no signifi cant aortic valvular stenosis. MITRAL VALVE The mitral valve is normal in structure and function. Trace mitral regugitation. TRICUSPID VALVE The tricuspid valve is normal in structure and function. Mild tricuspid regurgitation. Estimated PAP is 25-30mmHg. PULMONIC VALVE The pulmonary valve is normal in structure and function. Doppler and Color Flow revealed mild pulmoni c valvular regurgitation. GREAT VESSELS The aortic root is normal in size. The ascending aorta is normal in size. The IVC is normal in size a nd collapses >50% with inspiration. PERICARDIAL EFFUSION There is no evidence of significant pericardial effusion. Critical Notification Critical Value: No <Conclusion> Left ventricle systolic functionsystolic function is normal. The Ejection Fraction is 55-60%. There is normal LV segmental wall motion. Transmitral Doppler flow pattern is Grade I-abnormal relaxation pattern. Trace mitral regugitation. Mild tricuspid regurgitation. Estimated PAP is 25-30mmHg. There is no evidence of significant pericardial effusion. Signed by : Noemy Pak, Electronically Approved : 04/06/2020 14:30:30
== END ==
LOC: ECHO 09:58
PROVIDERS: ATTEND Internal Medicine Cardiovascular Disease
DX: I08.8 Other rheumatic multiple valve diseases (principal)
CPT/HCPCS: 93306